=== PATIENT | female | born 1975 | race Two or more races ===

== ENCOUNTER 2020-01-10 09:35 | Inpatient (IN) | payer SELFPAY ==
[~2020-01-10] VITALS: Ht 162.6 cm; Wt 84.3 kg
[2020-01-10] MEDS ORDERED: SODIUM CHLORIDE 0.9% 1,000 ML IV ONE (10:05)
[2020-01-10] MEDS ORDERED: ONDANSETRON HCL 4 MG/2 ML VIAL IV ONE (10:15)
[2020-01-10 10:26] LABS: Basophils # (auto) 0 10 ^3/uL (0-0.2); Eosinophils # (auto) 0 10 ^3/uL (0-0.8); Hematocrit 31.4 % (36.0-46.0); Lymphocytes # (auto) 1.2 10 ^3/uL (0.4-5.4); Lymphocytes % (auto) 11.4 % (10.0-50.0); Monocytes # (auto) 0.7 10 ^3/uL (0-1.3); Monocytes % (auto) 6.6 % (0.0-12.0); Platelet Count (auto) 681 10^3/uL (140-450)
[2020-01-10 10:28] LABS: Basophils % (auto) 0.5 % (0.0-2.0); Eosinophils % (auto) 0.4 % (0.0-7.0); Hemoglobin 9.9 g/dL (12.2-16.2); Mean Corpuscular Hemoglobin 24.5 pg (28.0-32.0); Mean Corpuscular Hgb Conc. 31.6 g/dL (32.0-36.0); Mean Corpuscular Volume 77.4 fL (80.0-100.0); Neutrophils # (auto) 8.3 10 ^3/uL (1.6-8.6); Neutrophils % (auto) 81.1 % (37.0-80.0); Red Blood Cells 4.06 10^6/uL (4.0-5.20); Red Cell Distribution Width 17.8 % (11.8-14.3); White Blood Cell 10.3 10^3/uL (4.4-10.8)
[2020-01-10 10:41] LABS: Albumin 3.8 g/dL (3.4-5.0); Calcium 9.1 mg/dL (8.5-10.1); Potassium 3.6 mmol/L (3.5-5.1)
[2020-01-10 10:44] LABS: Urine Bacteria NONE SEEN /hpf (None Seen); Urine Blood Negative /uL (Negative); Urine Mucus MODERATE (None Seen); Urine Specific Gravity 1.028 (1.001-1.035); Urine WBC 6 /hpf (0 - 5)
[2020-01-10 10:46] LABS: BUN/Creatinine Ratio 12.8; Bilirubin, Total 0.7 mg/dL (0.2-1.0); Total Protein 7.6 g/dL (6.4-8.2)
[2020-01-10 11:31] LABS: INR 1.05 (0.9-1.15); Partial Thromboplastin Time 27.4 sec (23.0-31.2)
[2020-01-10] MEDS ORDERED: cefTRIAXone 1GM/50ML D5W 50 ML IV ONE (15:15)
[2020-01-10] MEDS ORDERED: MORPHINE SULF INJ 2 MG/ML SYRINGE 1ML IV PRN ×2 (16:00)
[2020-01-10] MEDS ORDERED: ACETAMINOPHEN 500 MG TAB PO PRN (16:00)
[2020-01-10] MEDS ORDERED: NITROGLYCERIN 0.4 MG SL TAB SL PRN (16:00)
[2020-01-10] MEDS ORDERED: LORazepam 0.5 MG TAB PO PRN (16:00)
[2020-01-10] MEDS ORDERED: cefTRIAXone SOD 1,000 MG VL ONE (16:38)
[2020-01-10] MEDS: PANTOPRAZOLE 40 MG TAB PO SCH ×2 (16:42→21:43)
[2020-01-10] MEDS: SODIUM CHLORIDE 0.9% 1,000 ML IV SCH (16:43)
[2020-01-10] MEDS: SUCRALFATE 1 GM/10 ML ORAL SUSP PO SCH ×2 (17:34→21:43)
[2020-01-10 21:43] VITALS: BP 108/71
--- NOTE | 2020-01-10 21:43 | NUR ---
MS admit from [facility] admitted to tele/MS after SBAR received. Patient oriented to GEORGE HINSON, RN primary RN, unit, room, bed, and unit policies regarding patient care and visiting hours. Patient weighed by bedscale and encouraged to call if they need something. All questions and concerns addressed, patient verbalized understanding.
[2020-01-10] MEDS: CIPROFLOXACIN HCL 500 MG TAB PO SCH (21:44)
[2020-01-10] MEDS ORDERED: PNEUMOCOCCAL VACC POLYS 25 MCG/0.5 ML VIAL IM ONE (22:45)
--- NOTE | 2020-01-11 00:25 | NUR ---
Nausea Patient c/o nausea. Paged hospitalist Je, ordered Zofran 4mg IV q6hr PRN for nausea. Repeated order to verified.
[2020-01-11] MEDS: ONDANSETRON HCL 4 MG/2 ML VIAL IV PRN ×2 (00:27→12:36)
[2020-01-11] MEDS ORDERED: ONDANSETRON HCL 4 MG/2 ML VIAL ONE (00:27)
[2020-01-11 05:00] VITALS: BP 96/57
[2020-01-11] MEDS: SODIUM CHLORIDE 0.9% 1,000 ML IV SCH ×2 (05:19→18:53)
[2020-01-11 05:31] LABS: Basophils # (auto) 0 10 ^3/uL (0-0.2); Eosinophils % (auto) 0.6 % (0.0-7.0); Mean Corpuscular Volume 77.2 fL (80.0-100.0); White Blood Cell 8.3 10^3/uL (4.4-10.8)
[2020-01-11 05:32] LABS: Basophils % (auto) 0.2 % (0.0-2.0); Eosinophils # (auto) 0 10 ^3/uL (0-0.8); Hematocrit 25.4 % (36.0-46.0); Lymphocytes % (auto) 12.1 % (10.0-50.0); Mean Corpuscular Hemoglobin 24.5 pg (28.0-32.0); Mean Corpuscular Hgb Conc. 31.7 g/dL (32.0-36.0); Monocytes # (auto) 0.6 10 ^3/uL (0-1.3); Monocytes % (auto) 7.6 % (0.0-12.0); Neutrophils # (auto) 6.6 10 ^3/uL (1.6-8.6); Neutrophils % (auto) 79.5 % (37.0-80.0); Platelet Count (auto) 524 10^3/uL (140-450); Red Blood Cells 3.29 10^6/uL (4.0-5.20); Red Cell Distribution Width 17.6 % (11.8-14.3)
[2020-01-11 05:49] LABS: Potassium 3.9 mmol/L (3.5-5.1)
[2020-01-11 05:58] LABS: BUN/Creatinine Ratio 19.2; Bilirubin, Total 0.5 mg/dL (0.2-1.0); Calcium 7.8 mg/dL (8.5-10.1); Total Protein 6.2 g/dL (6.4-8.2)
[2020-01-11] MEDS: SUCRALFATE 1 GM/10 ML ORAL SUSP PO SCH ×4 (06:20→21:10)
--- NOTE | 2020-01-11 08:05 | NUR ---
Opening Shift Note Assumed care of patient, patient asleep, respirations relaxed and even. No S/S of distress/SOB or pain. I will continue to monitor for changes Q1hr and PRN.
[2020-01-11 08:19] VITALS: BP 96/55
[2020-01-11] MEDS ORDERED: diphenhdrAMINE HCL 50 MG/1 ML VL ONE (09:12)
[2020-01-11] MEDS ORDERED: LIDOCAINE VISCOUS 2% 15ML UD ONE (09:12)
[2020-01-11] MEDS ORDERED: SODIUM CHLORIDE LOCK 10 ML ONE (09:12)
--- NOTE | 2020-01-11 10:47 | NUR ---
GI LAB PATIENT NPO ALL CONSENTS SIGNED; CURRENTLY A COVID RULE OUT; ASYMTOMATIC, ROOM AIR 99%. PER WOOD MILLER JOSLYN PATIENT CAN BE TAKEN TO PROCEDURE IN CURRENT BED AND TO FOLLOW PROTOCOL AND CLEANING PROCEDURES PRIOR TO LEAVING THE ANTE ROOM. THIS RN SPOKE TO MICAH DEL REAL IN THE OR , PER CHARGE IN OR RONDA, THE PATIENT CAN COME TO THE OR IN CURRENT BED AND TO BRING THE HARD CHART.
--- NOTE | 2020-01-11 11:15 | NUR ---
TAKEN TO GI LAB. TRANSPORTED VIA HOSPITAL BED , PATIENT WEARING MASK APPROPRIATELY; TOLERATED WELL.ALL PROTOCOLS FOLLOWED.
[2020-01-11] MEDS: MIDAZOLAM HCL 5 MG/ML-1ML VIAL ONE ×3 (11:20→11:27)
[2020-01-11] MEDS: fentaNYL CITRATE 100 MCG/2 ML VL ONE ×3 (11:20→11:27)
--- NOTE | 2020-01-11 12:04 | NUR ---
CENTRAL EVS PAGED AND BODY FITTER TO PLASTER CASTER PATIENT FROM OR RECOVERY.
--- NOTE | 2020-01-11 12:22 | NUR ---
RETURNED FROM OR. PATIENT DENIED PAIN OR NAUSEA. TOLERATED PROCEDURE WELL. CARAFATE GIVEN ORDER AC/HS. WILL CONTIUE TO MONITOR.
[2020-01-11 13:15] VITALS: BP 106/64
--- NOTE | 2020-01-11 13:30 | NUR ---
TOLERATE CLEAR LIQUIDS WELL, NO N/V. Addendum: 01/11/20 at 1734 by TETO CORTES RN ADVANCED DIET TO FULL LIQUID.
--- NOTE | 2020-01-11 15:18 | NUR ---
Nutrition Consult/assessment Note please see attached link for complete assessment Est Energy needs ABW 68 [id number] kcals (23-25 kcal/kgABW), Est Protein needs: 68-74 gms/day (1.0-1.1 gm/kgABW). Will continue to monitor and reassess prn. Addendum: 01/11/20 at [address] Amended: Links added.
[2020-01-11 16:30] LABS: % Iron Saturation 7.7 % (15-50)
[2020-01-11 16:44] VITALS: BP 100/56
[2020-01-11] MEDS: PANTOPRAZOLE 40 MG TAB PO SCH ×2 (16:57→21:11)
[2020-01-11] MEDS: CIPROFLOXACIN HCL 500 MG TAB PO SCH ×2 (16:57→21:11)
--- NOTE | 2020-01-11 17:34 | NUR ---
DIET ADVANCED TO FULL LIQUID DIET . WILL CONTINUE TO MONITOR.
--- NOTE | 2020-01-11 19:50 | NUR ---
Opening Shift Note Assumed care of patient, awake and alert. No S/S of distress/SOB or pain. Instructed on POC and to call for assist PRN, will continue to monitor for changes Q1hr and PRN.
[2020-01-11 20:00] VITALS: BP 102/62
[2020-01-11 22:00] VITALS: BP 127/78
--- NOTE | 2020-01-11 22:20 | NUR ---
Transferred Report/SBAR given to SANDY Jamison. Patient wheelchair down to 298A. Patient tolerated well.
[2020-01-12 05:00] VITALS: BP 115/72
[2020-01-12] MEDS: SUCRALFATE 1 GM/10 ML ORAL SUSP PO SCH ×3 (06:16→17:00)
[2020-01-12 06:21] LABS: Basophils # (auto) 0 10 ^3/uL (0-0.2); Basophils % (auto) 0.1 % (0.0-2.0); Eosinophils # (auto) 0 10 ^3/uL (0-0.8); Hemoglobin 8.6 g/dL (12.2-16.2); Lymphocytes # (auto) 0.5 10 ^3/uL (0.4-5.4); Monocytes # (auto) 0.5 10 ^3/uL (0-1.3); Nucleated Red Blood Cells % 0.1 %
[2020-01-12 06:23] LABS: Eosinophils % (auto) 0.1 % (0.0-7.0); Hematocrit 25.2 % (36.0-46.0); Lymphocytes % (auto) 7.5 % (10.0-50.0); Mean Corpuscular Hemoglobin 35.5 pg (28.0-32.0); Mean Corpuscular Hgb Conc. 34.2 g/dL (32.0-36.0); Mean Corpuscular Volume 103.7 fL (80.0-100.0); Monocytes % (auto) 7.2 % (0.0-12.0); Neutrophils # (auto) 5.4 10 ^3/uL (1.6-8.6); Neutrophils % (auto) 85.1 % (37.0-80.0); Platelet Count (auto) 125 10^3/uL (140-450); Red Blood Cells 2.42 10^6/uL (4.0-5.20); Red Cell Distribution Width 18.3 % (11.8-14.3); White Blood Cell 6.4 10^3/uL (4.4-10.8)
[2020-01-12 07:08] LABS: Cholesterol 208 mg/dL (< 200); HDL Cholesterol 36 mg/dL (40-59); LDL Cholesterol 140 mg/dL (< 100); Triglycerides 205 mg/dL (< 150)
--- NOTE | 2020-01-12 07:44 | NUR ---
closing shift notes pt have no s/s of distress or pain at this time endorse care to day shift nurse
[2020-01-12 08:00] VITALS: BP 125/79
[2020-01-12 08:43] VITALS: BP 125/79
[2020-01-12] MEDS: CIPROFLOXACIN HCL 500 MG TAB PO SCH (09:58)
[2020-01-12] MEDS: PANTOPRAZOLE 40 MG TAB PO SCH (09:58)
[2020-01-12 13:00] VITALS: BP 107/60
[2020-01-12] MEDS: SODIUM CHLORIDE 0.9% 1,000 ML IV SCH (13:02)
[2020-01-12] MEDS ORDERED: PANT40TA2 PO (14:35)
[2020-01-12] MEDS ORDERED: SUCR1TAB22 PO (14:35)
[2020-01-12] MEDS ORDERED: FER325T PO (14:35)
--- NOTE | 2020-01-12 16:36 | NUR ---
assessment Patient is a 44 year old female who is alert and oriented. Patients cognitive abilities are intact. Prior to admission patient lived home with family and functioned independently. Patient informed me she is able to care for her own ADLs. Per patient she will return home to her prior living arrangements post discharge and family will transport her home. Patient has no insurance. Patient has been assessed by Jose Roblero of [facility]. Patient is over income. I have provided patient with resources for [facility], Dr. Rubin, and [facility] urgent care for follow up visits. I have provided patient with a prescription card from community assistance program. Patient has no post discharge needs identified. I informed patient she has a right to speak to a dialysis social worker regarding all care. I informed patient she has a right to participate in any and all discharge planning. Patient does not have a POA and advanced directive. I have offered patient information on POA and advanced directives. I informed the patient the advantages and benefits of having an Advanced Directive. Patient verbalized understanding and agreed to discharge plan. Addendum: 01/12/20 at 1638 by Maggi JACQUES Amended: Links added.
[2020-01-12 16:42] VITALS: BP 107/60
[2020-01-12 16:43] VITALS: BP 107/65
--- NOTE | 2020-01-12 18:41 | NUR ---
Discharge instructions given as ordered. Encourage to follow up with [facility] on 01/24/20 @ 1.30pm as instructed. All questions and concerns addressed. Patient verbalized understanding. Medication reconciliation form completed and copy given to patient. IV removed with catheter intact, pressure dressing applied. Patient taken to vehicle via wheelchair with all personal belongings, accompanied by staff and family member. No distress noted at time of departure.
== END 2020-01-12 18:45 | disposition home or self-care (01) | DRG 384 ==
LOC: ER 09:35 → OVERFLOW 09:36 → EAST 20:30 → WEST WING 01-11 22:40
PROVIDERS: ATTEND Internal Medicine
PROC: 0DB68ZX Excision of Stomach, Via Natural or Artificial Opening Endoscopic, Diagnostic (ICD-10-PCS; principal; 2020-01-11 11:16)
DX: K25.9 Gastric ulcer, unspecified as acute or chronic, without hemorrhage or perforation (principal); K52.9 Noninfective gastroenteritis and colitis, unspecified; N83.9 Noninflammatory disorder of ovary, fallopian tube and broad ligament, unspecified; K29.70 Gastritis, unspecified, without bleeding; E86.0 Dehydration; N20.0 Calculus of kidney; N83.202 Unspecified ovarian cyst, left side; D50.9 Iron deficiency anemia, unspecified; E78.5 Hyperlipidemia, unspecified; Z20.828 Contact with and (suspected) exposure to other viral communicable diseases; Z90.49 Acquired absence of other specified parts of digestive tract
CPT/HCPCS: 36415; 43239; 71045; 74176; 76830; 76856; 80053; 80061; 81001; 81025; 82150; 82962; 83540; 83550; 83605; 83690; 84443; 84702; 85025; 85610; 85730; 86850; 86900; 86901; 87040; 87086; 87426; G0378; J0696; J2250; J2405

== ENCOUNTER 2020-03-06 00:16 | Inpatient (IN) | payer OTHER, SELFPAY ==
[~2020-03-06] VITALS: Ht 162.6 cm; Wt 78.0 kg
[2020-03-06] VITALS (10 sets, daily range): BP systolic 99–113; BP diastolic 54–73
[~2020-03-06 00:16] MED LIST: FER325T PO; PANT40TA2 PO; SUCR1TAB22 PO
[2020-03-06 01:25] LABS: Basophils # (auto) 0 10 ^3/uL (0-0.2); Eosinophils # (auto) 0 10 ^3/uL (0-0.8); Lymphocytes # (auto) 1.1 10 ^3/uL (0.4-5.4); Mean Corpuscular Hemoglobin 20.2 pg (28.0-32.0); Red Blood Cells 2.91 10^6/uL (4.0-5.20)
[2020-03-06 01:27] LABS: Basophils % (auto) 0.4 % (0.0-2.0); Eosinophils % (auto) 0.5 % (0.0-7.0); Hematocrit 19.2 % (36.0-46.0); Lymphocytes % (auto) 13.1 % (10.0-50.0); Mean Corpuscular Hgb Conc. 30.6 g/dL (32.0-36.0); Mean Corpuscular Volume 66.2 fL (80.0-100.0); Monocytes # (auto) 0.6 10 ^3/uL (0-1.3); Monocytes % (auto) 6.7 % (0.0-12.0); Neutrophils # (auto) 6.5 10 ^3/uL (1.6-8.6); Neutrophils % (auto) 79.3 % (37.0-80.0); Nucleated Red Blood Cells % 0.1 %; Platelet Count (auto) 747 10^3/uL (140-450); White Blood Cell 8.2 10^3/uL (4.4-10.8)
[2020-03-06 01:30] LABS: Hemoglobin 5.9 g/dL (12.2-16.2)
[2020-03-06 01:44] LABS: Albumin 2.9 g/dL (3.4-5.0); Anion Gap 8 (5-15); Blood Urea Nitrogen 11 mg/dL (7-18); Carbon Dioxide 25 mmol/L (21-32); Chloride 105 mmol/L (98-107); Glucose 90 mg/dL (74-106); Sodium 138 mmol/L (136-145)
[2020-03-06 01:46] LABS: Alanine Aminotransferase 37 U/L (13-56); Aspartate Aminotransferase 29 U/L (15-37); BUN/Creatinine Ratio 14.9; GFR African American 110 mL/min; GFR Non-African American 91 mL/min
[2020-03-06 01:51] LABS: Alkaline Phosphatase 90 U/L (45-117); Bilirubin, Total 0.6 mg/dL (0.2-1.0); Total Protein 6.9 g/dL (6.4-8.2)
[2020-03-06 08:41] LABS: Hemoglobin 6.7 g/dL (12.2-16.2)
[2020-03-06] MEDS ORDERED: SODIUM CHLORIDE 0.9% 1,000 ML IV ONE ×2 (09:00)
[2020-03-06] MEDS ORDERED: ONDANSETRON HCL 4 MG/2 ML VIAL IV ONE (09:00)
[2020-03-06] MEDS ORDERED: NITROGLYCERIN 0.4 MG SL TAB SL PRN (10:00)
[2020-03-06] MEDS ORDERED: MORPHINE SULF INJ 2 MG/ML SYRINGE 1ML IV PRN ×2 (10:00)
[2020-03-06] MEDS ORDERED: ONDANSETRON HCL 4 MG/2 ML VIAL IV PRN (10:00)
[2020-03-06] MEDS ORDERED: ACETAMINOPHEN 500 MG TAB PO PRN (10:00)
[2020-03-06] MEDS: PANTOPRAZOLE 40 MG/10 ML VIAL INJ IV SCH ×2 (10:10→21:33)
[2020-03-06] MEDS ORDERED: FAMO-12 PO (11:10)
[2020-03-06] MEDS ORDERED: FOLI1TAB6 PO (11:10)
[2020-03-06] MEDS ORDERED: CYAN1TAB11 PO (11:10)
[2020-03-06] MEDS ORDERED: FER325T PO (11:10)
[2020-03-06] MEDS: SUCRALFATE 1 GM/10 ML ORAL SUSP PO SCH ×2 (12:05→17:24)
[2020-03-06 14:09] LABS: Folate (Folic Acid) 14.73 ng/mL (5.38-24)
--- NOTE | 2020-03-06 17:43 | NUR ---
MS admit from [facility] admitted to tele/MS after SBAR received. Patient oriented to SHERINE CALLEJAS, RN primary RN, TELE unit, room 270, bed A, and unit policies regarding patient care and visiting hours. Patient weighed by bedscale and encouraged to call if they need something. All questions and concerns addressed, patient verbalized understanding.
[2020-03-06] MEDS ORDERED: INFLUENZA QUAD 2020-2021 0.5 ML SYRG IM ONE (18:15)
--- NOTE | 2020-03-06 18:18 | NUR ---
CONSENTS SIGNED AND PLACED IN THE HARD CHART.
--- NOTE | 2020-03-06 18:41 | NUR ---
CARE ENDORSED TO THE NOC RN.
--- NOTE | 2020-03-06 19:15 | NUR ---
Opening Shift Note Assumed care of patient, awake and alert x4. No S/S of distress/SOB or pain. Instructed on POC , NPO after midnight for EGD in AM and to call for assist PRN, Patient verbalized understanding. will continue to monitor for changes Q1hr and PRN.
[2020-03-06 20:10] LABS: INR 1.06 (0.9-1.15); Partial Thromboplastin Time 26.6 sec (23.0-31.2)
[2020-03-06 21:22] LABS: Hematocrit 25.9 % (36.0-46.0); Hemoglobin 8.1 g/dL (12.2-16.2)
--- NOTE | 2020-03-07 00:57 | NUR ---
PAULINO COVID SWAB OBTAINED. WILL SEND TO THE LAB.
--- NOTE | 2020-03-07 01:55 | NUR ---
COLLECTED IN HOUSE COVID SWAB AND URINE SAMPLE . SENT TO LAB.
[2020-03-07 02:25] LABS: Urine Bacteria FEW /hpf (None Seen); Urine Blood Negative /uL (Negative); Urine Mucus FEW (None Seen); Urine Specific Gravity 1.016 (1.001-1.035); Urine WBC 8 /hpf (0 - 5)
--- NOTE | 2020-03-07 03:36 | NUR ---
CHG wipes done. Total linen change.
[2020-03-07 05:00] VITALS: BP 103/72
[2020-03-07] MEDS: SUCRALFATE 1 GM/10 ML ORAL SUSP PO SCH ×3 (06:05→17:03)
[2020-03-07 06:06] LABS: Basophils # (auto) 0 10 ^3/uL (0-0.2); Lymphocytes # (auto) 0.8 10 ^3/uL (0.4-5.4); Monocytes # (auto) 0.5 10 ^3/uL (0-1.3); Monocytes % (auto) 7.8 % (0.0-12.0)
[2020-03-07 06:15] LABS: Basophils % (auto) 0.3 % (0.0-2.0); Eosinophils # (auto) 0.1 10 ^3/uL (0-0.8); Eosinophils % (auto) 0.8 % (0.0-7.0); Hematocrit 24.7 % (36.0-46.0); Hemoglobin 7.6 g/dL (12.2-16.2); Lymphocytes % (auto) 12.5 % (10.0-50.0); Mean Corpuscular Hemoglobin 22.3 pg (28.0-32.0); Mean Corpuscular Hgb Conc. 30.8 g/dL (32.0-36.0); Mean Corpuscular Volume 72.2 fL (80.0-100.0); Neutrophils # (auto) 5.1 10 ^3/uL (1.6-8.6); Neutrophils % (auto) 78.6 % (37.0-80.0); Platelet Count (auto) 546 10^3/uL (140-450); Red Blood Cells 3.42 10^6/uL (4.0-5.20); White Blood Cell 6.5 10^3/uL (4.4-10.8)
[2020-03-07 06:24] LABS: Potassium 3.9 mmol/L (3.5-5.1)
[2020-03-07 06:30] LABS: BUN/Creatinine Ratio 15.5; Calcium 7.9 mg/dL (8.5-10.1)
[2020-03-07 06:41] LABS: Red Cell Distribution Width 23.4 % (11.8-14.3)
--- NOTE | 2020-03-07 06:50 | NUR ---
Spoke with Dr. Maldonado on the phone. She said patient's procedure will be at 8:30 am. Patient is NPO, had CHG wipes done.
--- NOTE | 2020-03-07 07:05 | NUR ---
Closing shift event Patient resting in bed. No sob, no chest pain, no acute distress seen. Bed in low locked position, call light within reach, non skid socks on.
--- NOTE | 2020-03-07 08:00 | NUR ---
Opening Shift Note Assumed care of patient, awake, alert and oriented X4. No S/S of distress/SOB or pain. Tele# 49, sinus rhythm @ 72 bpm. IV to left antecubital, 20 gauge, patent and saline locked. Instructed on POC and to call for assist PRN, verbalized understanding. Bed locked, in lowest position, call light within reach, will continue to monitor for changes Q1hr and PRN.
[2020-03-07] MEDS ORDERED: LIDOCAINE VISCOUS 2% 15ML UD ONE (08:19)
[2020-03-07] MEDS ORDERED: SODIUM CHLORIDE LOCK 10 ML ONE (08:19)
[2020-03-07 08:47] VITALS: BP 107/58
[2020-03-07] MEDS: MIDAZOLAM HCL 5 MG/ML-1ML VIAL ONE ×2 (08:52→08:55)
[2020-03-07] MEDS: fentaNYL CITRATE 100 MCG/2 ML VL ONE ×3 (08:52→08:58)
[2020-03-07] MEDS: diphenhdrAMINE HCL 50 MG/1 ML VL ONE ×2 (08:52→08:55)
--- NOTE | 2020-03-07 09:05 | NUR ---
OR Patient taken to Pre-Op for EGD, no distress noted upon departure.
--- NOTE | 2020-03-07 10:15 | NUR ---
EGD Patient returned from EGD via bed, no distress noted upon return.
[2020-03-07] MEDS: PANTOPRAZOLE 40 MG/10 ML VIAL INJ IV SCH ×2 (10:44→22:00)
--- NOTE | 2020-03-07 11:10 | NUR ---
ROUNDS Dr Milan at bedside for rounds, no new orders a t this time. Patient updated on plan of care, verbalized understanding.
[2020-03-07 11:50] LABS: % Iron Saturation 6.8 % (15-50)
[2020-03-07 13:00] VITALS: BP 90/47
[2020-03-07] MEDS ORDERED: SODIUM FERR GLUC 62.5MG/5ML 125 MG in SODIUM CHL 0.9% 100 ML IV ONE (13:15)
[2020-03-07] MEDS: HYDROcodone-ACET 5/325MG TAB PO PRN ×2 (13:40→22:45)
--- NOTE | 2020-03-07 13:46 | NUR ---
HEMATOLOGY Dr Cisneros at bedside for Oncology consult, new orders received and followed through. Patient updated on plan of care, verbalized understanding.
[2020-03-07 14:08] LABS: Hemoglobin 7.7 g/dL (12.2-16.2)
--- NOTE | 2020-03-07 15:00 | NUR ---
assessment Patient is a 44 year old female who is alert and oriented. Patients cognitive abilities are intact. Prior to admission patient lived home with family and functioned independently. Patient informed me she is able to care for her own ADLs. Per patient she will return home to her prior living arrangements post discharge and family will transport her home. Patient has no insurance on the census. Patient provided me with a Isaac ID #[id number]. Sandra in admitting has updated insurance in the system. Patient has no post discharge needs identified at this time. I will continue to monitor and follow up as appropriate for any post discharge needs. I informed patient she has a right to speak to a social services counselor regarding all care. I informed patient she has a right to participate in any and all discharge planning. Patient does not have a POA and advanced directive. I have offered patient information on POA and advanced directives. I informed the patient the advantages and benefits of having an Advanced Directive. Patient verbalized understanding and agreed to discharge plan. Addendum: 03/07/20 at 1504 by Maggi JACQUES Amended: Links added.
[2020-03-07 16:45] VITALS: BP 106/66
--- NOTE | 2020-03-07 19:16 | NUR ---
Care endorsed to SANDY Azevedo, night nurse.
[2020-03-07 22:15] VITALS: BP 99/62
[2020-03-08 05:10] VITALS: BP 92/52
[2020-03-08 06:26] LABS: Basophils # (auto) 0 10 ^3/uL (0-0.2); Eosinophils # (auto) 0.1 10 ^3/uL (0-0.8); Eosinophils % (auto) 0.9 % (0.0-7.0); Hematocrit 25.6 % (36.0-46.0); Mean Corpuscular Hgb Conc. 31.2 g/dL (32.0-36.0); Nucleated Red Blood Cells % 0.1 %
[2020-03-08 06:27] LABS: Basophils % (auto) 0.2 % (0.0-2.0); Lymphocytes # (auto) 0.8 10 ^3/uL (0.4-5.4); Lymphocytes % (auto) 14.6 % (10.0-50.0); Mean Corpuscular Hemoglobin 22.5 pg (28.0-32.0); Mean Corpuscular Volume 72.1 fL (80.0-100.0); Monocytes # (auto) 0.5 10 ^3/uL (0-1.3); Monocytes % (auto) 8.1 % (0.0-12.0); Neutrophils # (auto) 4.3 10 ^3/uL (1.6-8.6); Neutrophils % (auto) 76.2 % (37.0-80.0); Platelet Count (auto) 552 10^3/uL (140-450); Red Blood Cells 3.55 10^6/uL (4.0-5.20); White Blood Cell 5.6 10^3/uL (4.4-10.8)
[2020-03-08] MEDS: SUCRALFATE 1 GM/10 ML ORAL SUSP PO SCH ×2 (06:34→12:28)
[2020-03-08 06:38] LABS: Red Cell Distribution Width 24.4 % (11.8-14.3)
[2020-03-08 06:54] LABS: BUN/Creatinine Ratio 10.3; Calcium 8.3 mg/dL (8.5-10.1); Potassium 3.8 mmol/L (3.5-5.1)
[2020-03-08 09:00] VITALS: BP 103/69
[2020-03-08] MEDS: PANTOPRAZOLE 40 MG/10 ML VIAL INJ IV SCH (10:11)
[2020-03-08] MEDS ORDERED: PANT40TA2 PO (11:51)
[2020-03-08] MEDS ORDERED: FER325T PO (11:51)
[2020-03-08] MEDS ORDERED: DOCU-94 PO (11:51)
[2020-03-08] MEDS ORDERED: SUCR1TAB22 PO (11:51)
[2020-03-08] MEDS ORDERED: SODIUM FERR GLUC 62.5MG/5ML 125 MG in SODIUM CHL 0.9% 100 ML IV SCH (12:00)
[2020-03-08 13:00] VITALS: BP 101/52
--- NOTE | 2020-03-08 13:00 | NUR ---
Dr. Milan at bedside, discussed the plan of care and follow up appointments with PCP, Mayela Medina of GI and Tyson Cordero of oncology as out patient. Patient verbalized understanding.
[2020-03-08 15:46] VITALS: BP 101/52
[2020-03-08] MEDS ORDERED: INFLUENZA QUAD 2020-2021 0.5 ML SYRG IM ONE (16:00)
[2020-03-08 17:00] VITALS: BP 103/65
--- NOTE | 2020-03-08 17:40 | NUR ---
Discharge instructions given as ordered. Encourage to follow up with PMD as instructed. Follow up with Mayela Medina of GI set up for 03/23/2020 at 9:15am, follow up with Dr. Cisneros of oncology needs authorization from PCP prior to appointment, patient verbalized understanding and will get authorization from PCP. All questions and concerns addressed. Patient verbalized understanding. Medication reconciliation form completed and copy given to patient. Influenza vaccine given. IV removed with catheter intact, pressure dressing applied. Telemetry unit returned to ICU. Patient taken to vehicle via wheelchair with all personal belongings, accompanied by staff and family member. No distress noted at time of departure.
== END 2020-03-08 17:40 | disposition home or self-care (01) | DRG 374 ==
LOC: ER 00:17 → TELE 00:18 → TELE-WESTW 17:50
PROVIDERS: ADMIT Nurse Practitioner Acute Care; ATTEND Internal Medicine
PROC: 30233N1 Transfusion of Nonautologous Red Blood Cells into Peripheral Vein, Percutaneous Approach (ICD-10-PCS; 2020-03-06)
PROC: 0DB88ZX Excision of Small Intestine, Via Natural or Artificial Opening Endoscopic, Diagnostic (ICD-10-PCS; 2020-03-07)
PROC: 0DB68ZX Excision of Stomach, Via Natural or Artificial Opening Endoscopic, Diagnostic (ICD-10-PCS; principal; 2020-03-07 08:50)
DX: C16.9 Malignant neoplasm of stomach, unspecified (principal); K25.4 Chronic or unspecified gastric ulcer with hemorrhage; K29.51 Unspecified chronic gastritis with bleeding; E44.0 Moderate protein-calorie malnutrition; E78.5 Hyperlipidemia, unspecified; Z20.828 Contact with and (suspected) exposure to other viral communicable diseases; R07.89 Other chest pain; D50.9 Iron deficiency anemia, unspecified; Z68.29 Body mass index [BMI] 29.0-29.9, adult; R59.1 Generalized enlarged lymph nodes
CPT/HCPCS: 36415; 43239; 71045; 74176; 80048; 80053; 81001; 82378; 82746; 83540; 83550; 83615; 83735; 84425; 84484; 84702; 85014; 85018; 85025; 85610; 85730; 86301; 86304; 86850; 86900; 86901; 86920; 87426; 93005; C9113; G0378; J2250; J2405

== ENCOUNTER 2020-04-02 09:24 | Inpatient (IN) | payer OTHER ==
[~2020-04-02] VITALS: Ht 162.6 cm; Wt 80.5 kg
[~2020-04-02 09:24] MED LIST changes: +CYAN1TAB11 PO; +DOCU-94 PO; +FAMO-12 PO; +FOLI1TAB6 PO
[2020-04-02] MEDS ORDERED: ONDANSETRON HCL 4 MG/2 ML VIAL IV ONE (10:15)
[2020-04-02] MEDS ORDERED: MORPHINE SULFATE 4 MG/ML SYR/VIAL IV ONE (10:15)
[2020-04-02] MEDS ORDERED: SODIUM CHLORIDE 0.9% 1,000 ML IV ONE ×2 (10:15)
[2020-04-02 10:18] LABS: Albumin 2.4 g/dL (3.4-5.0); BUN/Creatinine Ratio 18.4; Calcium 8.9 mg/dL (8.5-10.1); Potassium 3.5 mmol/L (3.5-5.1)
[2020-04-02 10:22] LABS: Bilirubin, Total 0.7 mg/dL (0.2-1.0); Total Protein 7.4 g/dL (6.4-8.2)
[2020-04-02 10:38] LABS: Basophils # (auto) 0 10 ^3/uL (0-0.2); Eosinophils # (auto) 0 10 ^3/uL (0-0.8); Mean Corpuscular Volume 72.5 fL (80.0-100.0); Monocytes # (auto) 0.6 10 ^3/uL (0-1.3); Nucleated Red Blood Cells % 0.1 %
[2020-04-02 10:43] LABS: Basophils % (auto) 0.3 % (0.0-2.0); Eosinophils % (auto) 0.2 % (0.0-7.0); Lymphocytes # (auto) 0.5 10 ^3/uL (0.4-5.4); Lymphocytes % (auto) 5.8 % (10.0-50.0); Mean Corpuscular Hemoglobin 23.4 pg (28.0-32.0); Mean Corpuscular Hgb Conc. 32.3 g/dL (32.0-36.0); Monocytes % (auto) 6.7 % (0.0-12.0); Neutrophils # (auto) 7.4 10 ^3/uL (1.6-8.6); Platelet Count (auto) 530 10^3/uL (140-450); Red Blood Cells 4.28 10^6/uL (4.0-5.20); White Blood Cell 8.5 10^3/uL (4.4-10.8)
[2020-04-02 10:45] LABS: Red Cell Distribution Width 28.2 % (11.8-14.3)
[2020-04-02] MEDS ORDERED: MORPHINE SULF INJ 2 MG/ML SYRINGE 1ML IV PRN ×3 (13:30→20:15)
[2020-04-02] MEDS ORDERED: NITROGLYCERIN 0.4 MG SL TAB SL PRN ×2 (13:30→20:15)
[2020-04-02 14:41] LABS: % Iron Saturation 9.9 % (15-50)
[2020-04-02] MEDS ORDERED: ACET-6 PO (15:11)
[2020-04-02] MEDS ORDERED: PANT40TA2 PO (15:11)
[2020-04-02] MEDS ORDERED: DICY20TA PO (15:11)
[2020-04-02] MEDS ORDERED: ONDANSETRON HCL 4 MG/2 ML VIAL IV PRN ×2 (15:45→20:15)
[2020-04-02] MEDS: SUCRALFATE 1 GM/10 ML ORAL SUSP PO SCH ×2 (16:46→22:20)
[2020-04-02] MEDS: Ensure Enlive Strawberry 8oz Bottle PO SCH (18:00)
[2020-04-02] MEDS ORDERED: CLINDAMYCIN 600MG IV 50 ML IV ONE (20:15)
[2020-04-02] MEDS ORDERED: ACETAMINOPHEN 325 MG TAB PO PRN (20:15)
[2020-04-02] MEDS ORDERED: LACTULOSE 20Gm/30ML SOLN PO PRN (20:15)
[2020-04-02] MEDS ORDERED: HYDROcodone-ACET 5/325MG TAB PO PRN (20:15)
[2020-04-02] MEDS ORDERED: cefTRIAXone 1GM/50ML D5W 50 ML IV ONE (20:15)
[2020-04-02] MEDS ORDERED: ALUM & MAG HYDROX-SIMETH LIQ(MAALOX) 30 ML PO PRN (20:15)
[2020-04-02] MEDS ORDERED: LORazepam 0.5 MG TAB PO PRN (20:15)
[2020-04-02] MEDS: SODIUM CHLORIDE 0.9% 1,000 ML IV SCH (20:55)
[2020-04-02] MEDS: MORPHINE SULF INJ 2 MG/ML SYRINGE 1ML IV PRN (20:56)
--- NOTE | 2020-04-02 21:10 | NUR ---
Telemetry admit from [facility] admitted to Telemetry unit after SBAR received. Patient oriented to Berna Del Toro, primary RN, unit, room, bed, and unit policies regarding patient care and visiting hours. Patient now on continuous telemetry monitoring, tele box # 66 and telemetry reading on arrival to unit is SR 86. Patient placed on bedside oxygen, weighed by bed scale and encouraged to call if they need something. All questions and concerns addressed, patient verbalized understanding.
--- NOTE | 2020-04-02 21:30 | NUR ---
STOCKINGS DVT PROPHYLAXIS TO BILATERAL LOWER EXT APPLIED.
[2020-04-02 21:49] LABS: Cholesterol 117 mg/dL (< 200); HDL Cholesterol 35 mg/dL (40-59); LDL Cholesterol 73 mg/dL (< 100); Triglycerides 130 mg/dL (< 150)
[2020-04-02] MEDS ORDERED: PNEUMOCOCCAL VACC POLYS 25 MCG/0.5 ML VIAL IM ONE (22:00)
[2020-04-02] MEDS: PANTOPRAZOLE 40 MG TAB PO SCH (22:20)
--- NOTE | 2020-04-02 22:30 | NUR ---
PATIENT AMBULATING TO RESTROOM INDEPENDENTLY; STEADY GAIT NOTED.
[2020-04-03] VITALS (11 sets, daily range): BP systolic 95–130; BP diastolic 68–83
[2020-04-03] MEDS: MORPHINE SULF INJ 2 MG/ML SYRINGE 1ML IV PRN ×3 (01:14→09:55)
--- NOTE | 2020-04-03 04:34 | NUR ---
PAIN PATIENT STATES THAT MORPHINE HELPS WITH HER STOMACH PAIN BUT THAT SHE FEELS A "DIFFERENT PAIN" TO HER LEFT UPPER ABDOMEN THAT IS UNRELIEVED. PATIENT DESCRIBES THIS PAIN IN BANGLADESHI "UN DOLOR CON HUECO" WHICH TRANSLATES TO: A PAIN WITH HOLLOWNESS. PROVIDED HEATED PACKS; PATIENT REPORTS MINIMAL COMFORT.
[2020-04-03] MEDS ORDERED: CLINDAMYCIN 600MG IV 50 ML IV SCH (06:00)
[2020-04-03] MEDS: SUCRALFATE 1 GM/10 ML ORAL SUSP PO SCH ×4 (06:11→22:18)
[2020-04-03 06:16] LABS: Basophils # (auto) 0 10 ^3/uL (0-0.2); Basophils % (auto) 0.4 % (0.0-2.0); Eosinophils # (auto) 0 10 ^3/uL (0-0.8); Eosinophils % (auto) 0.5 % (0.0-7.0); Hemoglobin 8.9 g/dL (12.2-16.2); Lymphocytes # (auto) 0.5 10 ^3/uL (0.4-5.4)
[2020-04-03 06:21] LABS: Hematocrit 28.3 % (36.0-46.0); Lymphocytes % (auto) 7.2 % (10.0-50.0); Mean Corpuscular Hgb Conc. 31.4 g/dL (32.0-36.0); Mean Corpuscular Volume 73.4 fL (80.0-100.0); Monocytes # (auto) 0.6 10 ^3/uL (0-1.3); Monocytes % (auto) 9.6 % (0.0-12.0); Neutrophils # (auto) 5.5 10 ^3/uL (1.6-8.6); Neutrophils % (auto) 82.3 % (37.0-80.0); Platelet Count (auto) 395 10^3/uL (140-450); Red Blood Cells 3.86 10^6/uL (4.0-5.20); White Blood Cell 6.6 10^3/uL (4.4-10.8)
[2020-04-03 06:32] LABS: Red Cell Distribution Width 27.7 % (11.8-14.3)
--- NOTE | 2020-04-03 08:08 | NUR ---
Opening Note Assumed care of patient, she is A & O x4, no s/s of distress. POC discussed. Patient states "the pain medication only works for 2 hours and then I have pain again", will notify MD. Bed is in lowest ,locked position, call light within reach. Will continue to monitor.
[2020-04-03] MEDS: FERROUS SULFATE 300 MG/5 ML ORAL LIQ PO SCH ×3 (08:35→19:05)
[2020-04-03] MEDS: Ensure Enlive Strawberry 8oz Bottle PO SCH ×2 (08:35→18:00)
[2020-04-03] MEDS ORDERED: cefTRIAXone 1GM/50ML D5W 50 ML IV SCH (09:00)
[2020-04-03] MEDS: PANTOPRAZOLE 40 MG TAB PO SCH ×2 (09:55→22:18)
--- NOTE | 2020-04-03 10:24 | NUR ---
Dr. Milan and Dr. Agudelo at bedside. POC discussed. Patient to have a paracentesis. Informed doctors of patient persistent pain in the abdomen. Will medicate per orders.
[2020-04-03] MEDS: SIMETHICONE 40 MG/0.6 ML ORAL DROP PO SCH ×4 (10:30→22:18)
--- NOTE | 2020-04-03 10:59 | NUR ---
ss consult Per consult advanced directive. Patient has been given an advanced directive. Addendum: 04/03/20 at 1100 by Maggi JACQUES Amended: Links added.
[2020-04-03 11:51] LABS: INR 1.06 (0.9-1.15); Partial Thromboplastin Time 24.8 sec (23.0-31.2)
[2020-04-03] MEDS: HYDROmorphone HCL 2 MG/ML VL IV PRN ×3 (12:34→19:48)
--- NOTE | 2020-04-03 12:35 | NUR ---
Nutrition consult/assessment Note please see attached link for complete assessment. Est energy needs BW74 k-1850 kcal (23-25 kcal/kg BW), Est protein needs 74-88 g (1.0-1.2 g/kg BW). Will monitor and reassess prn. Addendum: 04/03/20 at [address] Amended: Links added.
--- NOTE | 2020-04-03 12:50 | NUR ---
Dr. Cisneros at bedside. Mayra DELGADO, able to translate costa rican to finnish for patient for the specifics of the cancer doctor.
[2020-04-03] MEDS: SODIUM CHLORIDE 0.9% 1,000 ML IV SCH (13:03)
--- NOTE | 2020-04-03 13:50 | NUR ---
Patient returned from paracentesis. Patient states "I feel dizzy". Took patient BP 122/93, HR 92, O2 99, RR20, 10/10 pain in the left flank. Patient was medicated prior to procedure. Patient states "I get this pain when I lay flat," per patient she was flat for the procedure. Got patient comfortable in bed, placed hot packs to the area. Will inform MD of pain.
--- NOTE | 2020-04-03 13:57 | NUR ---
PARACENTESIS PATIENT UNDERWENT PARACENTESIS IN .S. DEPT. PER DR CAPPS UNDER LOCAL ANESTHETIC. PROCEDURE TOLERATED WELL. 3850 ML DK QUENTIN LIQUID OBTAINED AND TAKEN TO LAB/PATHOLOGY FOR ORDERED TESTING. BANDAID APPLIED TO RIGHT ABD - NO BLEEDING/HEMATOMA NOTED AT SITE. PATIENT C/O LEFT LOWER BACK PAIN AFTER PROCEDURE BUT STATES THAT SHE HAS BEEN HAVING THIS PAIN. REPORT CALLED TO GENESIS DELGADO.
--- NOTE | 2020-04-03 14:10 | NUR ---
Informed Dr. Milan of patient pain to the left flank s/p paracentesis. Orders received, read back and verified for pain medication. When offered to the patient for pain medication, she wanted to wait until the next dose was due, see if the pain will subside a little.
--- NOTE | 2020-04-03 16:50 | NUR ---
Rounds Patient sleeping comfortable at this time, awakens to name, no s/s of distress. Will continue to monitor.
[2020-04-03 17:40] LABS: Urine Bacteria FEW /hpf (None Seen); Urine Blood Negative /uL (Negative); Urine Mucus FEW (None Seen); Urine Specific Gravity 1.028 (1.001-1.035); Urine WBC 5 /hpf (0 - 5)
[2020-04-03 17:55] LABS: Alcohol, Urine < 3.0 mg/dL (0-10); Amphetamine Screen, Urine NEGATIVE (NEGATIVE); Barbiturate Scree,Urine NEGATIVE (NEGATIVE); Benzodiazephine Screen, Urine NEGATIVE (NEGATIVE); Cannabinoid Screen, Urine POSITIVE (NEGATIVE); Cocaine Screen, Urine NEGATIVE (NEGATIVE); Phencyclidine Screen, Urine NEGATIVE (NEGATIVE)
[2020-04-03 18:03] LABS: Opiate Scree,Urine POSITIVE (NEGATIVE)
--- NOTE | 2020-04-03 19:05 | NUR ---
OPENING NOTE- NOC SHIFT ASSUMED PATIENT CARE. PATIENT IS IN BED, BED IS LOCKED AT LOWEST POSITION, BED RAILS UP X2 AND HEAD OF BED IS UP >45 DEGREES. BEDSIDE TABLE WITHIN REACH, PERSONAL BELONGINGS WITHIN REACH. DISCUSSED POC WITH PATIENT AND INSTRUCTED PATIENT TO CALL PRN; PATIENT VERBALIZED UNDERSTANDING.
--- NOTE | 2020-04-03 23:00 | NUR ---
NUTRITION PATIENT REFUSED DINNER. EDUCATED PATIENT REGARDING NUTRIENTS IN ENSURE AND ENCOURAGED PATIENT TO DRINK IT. PATIENT CONSUMED 75% OF ENSURE. NO NAUSEA OR VOMITING.
[2020-04-04] VITALS (7 sets, daily range): BP systolic 104–115; BP diastolic 65–76
[2020-04-04] MEDS: HYDROmorphone HCL 2 MG/ML VL IV PRN ×7 (00:02→20:22)
[2020-04-04] MEDS: SODIUM CHLORIDE 0.9% 1,000 ML IV SCH ×2 (05:07→20:54)
[2020-04-04] MEDS: SIMETHICONE 40 MG/0.6 ML ORAL DROP PO SCH ×4 (06:48→20:53)
[2020-04-04] MEDS: SUCRALFATE 1 GM/10 ML ORAL SUSP PO SCH ×4 (06:48→20:52)
--- NOTE | 2020-04-04 07:29 | NUR ---
CLOSING NOTE- NOC SHIFT ENDORSED PATIENT CARE TO DAY SHIFT NURSE. PATIENT IS CALM, NO S/SX OF DISTRESS OR SOB.
--- NOTE | 2020-04-04 07:45 | NUR ---
Opening Note Assumed care of patient, she is resting at this time, awakens to name, patient can communicate in Spanish well, Mongolian is her primary language. Patient is comfortable at this time, no pain. Encouraged patient to drink some Ensure, educated her on nutrition. Bed is in lowest, locked position, call light within reach. Will continue to monitor.
[2020-04-04] MEDS: Ensure Enlive Strawberry 8oz Bottle PO SCH ×2 (08:00→18:00)
--- NOTE | 2020-04-04 08:56 | NUR ---
Called Lab to make sure the urine culture is processed.
--- NOTE | 2020-04-04 09:05 | NUR ---
Dr. Cisneros at bedside. Offered Chemotherapy to patient to assist in slowing the cancer, Sirisha (cardiac care unit nurse) at bedside to translate to maori for patient. Patient agreed to chemotherapy and portacath placement. Orders received, read back and verified.
--- NOTE | 2020-04-04 09:10 | NUR ---
Asked Sirisha, manager unit to call surgical consult to Dr. Oro.
[2020-04-04] MEDS: FERROUS SULFATE 300 MG/5 ML ORAL LIQ PO SCH ×3 (09:21→18:20)
[2020-04-04] MEDS: PANTOPRAZOLE 40 MG TAB PO SCH ×2 (09:22→20:54)
[2020-04-04] MEDS: cefTRIAXone 1GM/50ML D5W 50 ML IV SCH (11:36)
[2020-04-05] MEDS: HYDROmorphone HCL 2 MG/ML VL IV PRN ×4 (01:12→22:08)
[2020-04-05 05:17] VITALS: BP 111/68
[2020-04-05] MEDS: SIMETHICONE 40 MG/0.6 ML ORAL DROP PO SCH ×4 (06:00→20:55)
[2020-04-05] MEDS: SUCRALFATE 1 GM/10 ML ORAL SUSP PO SCH ×4 (06:03→20:55)
--- NOTE | 2020-04-05 06:30 | NUR ---
Patient taken to OR in bed
[2020-04-05] MEDS: ceFAZolin 1GM VL ONE ×2 (07:03→10:15)
[2020-04-05] MEDS: LIDOCAINE 1% HCL (LOCAL ANESTH.) INJ 20ML MDV ONE ×2 (07:03→10:15)
[2020-04-05] MEDS: HEPARIN SODIUM (PORCINE) 5000 UNITS/ML 1ML VIAL ONE ×2 (07:03→10:15)
[2020-04-05] MEDS: HEPARIN 1,000 UNITS/ml 1ML VIAL ONE ×2 (07:04→10:15)
[2020-04-05] MEDS ORDERED: ceFAZolin 1GM/50ML 50 ML IV ONE (07:06)
[2020-04-05 07:12] LABS: Anion Gap 6 (5-15); Blood Urea Nitrogen 10 mg/dL (7-18); Calcium 8.5 mg/dL (8.5-10.1); Carbon Dioxide 24 mmol/L (21-32); Chloride 106 mmol/L (98-107); Glucose 99 mg/dL (74-106); Potassium 4.7 mmol/L (3.5-5.1); Sodium 136 mmol/L (136-145)
[2020-04-05 07:14] LABS: BUN/Creatinine Ratio 15.2; GFR African American 125 mL/min; GFR Non-African American 103 mL/min
[2020-04-05] MEDS ORDERED: MIDAZOLAM HCL 1MG/1ML-2 ML VIAL ONE (07:19)
[2020-04-05] MEDS ORDERED: KETAMINE HCL 10 ML ONE (07:19)
[2020-04-05] MEDS ORDERED: fentaNYL CITRATE 100 MCG/2 ML VL ONE (07:19)
[2020-04-05] MEDS ORDERED: ONDANSETRON HCL 4 MG/2 ML VIAL ONE (07:20)
[2020-04-05] MEDS ORDERED: GLYCOPYRROLATE 0.2 MG/ML 1ML VIAL ONE (07:20)
--- NOTE | 2020-04-05 07:35 | NUR ---
pt off unit
--- NOTE | 2020-04-05 07:38 | NUR ---
pt off unit Addendum: 04/05/20 at 1052 by JARED GARCIA RN RN Amended: Links added.
[2020-04-05 08:00] VITALS: BP 105/67
[2020-04-05] MEDS: Ensure Enlive Strawberry 8oz Bottle PO SCH ×2 (08:00→17:28)
[2020-04-05] MEDS: FERROUS SULFATE 300 MG/5 ML ORAL LIQ PO SCH ×3 (08:00→17:28)
--- NOTE | 2020-04-05 08:00 | NUR ---
pt off unit
[2020-04-05] MEDS ORDERED: HYDROmorphone HCL 2 MG/ML VL ONE (09:20)
[2020-04-05] MEDS: MORPHINE SULF 30 mg ER tab PO SCH ×2 (10:00→20:56)
--- NOTE | 2020-04-05 10:00 | NUR ---
pt off unit Addendum: 04/05/20 at 1054 by JARED GARCIA RN RN Amended: Links added.
[2020-04-05] MEDS ORDERED: HYDROmorphone HCL 2 MG/ML VL IV PRN (10:30)
[2020-04-05] MEDS ORDERED: ONDANSETRON HCL 4 MG/2 ML VIAL IV PRN (10:30)
[2020-04-05] MEDS: cefTRIAXone 1GM/50ML D5W 50 ML IV SCH (11:46)
[2020-04-05] MEDS: PANTOPRAZOLE 40 MG TAB PO SCH ×2 (11:46→21:01)
--- NOTE | 2020-04-05 12:58 | NUR ---
Dr. Cisneros at bedside Informed Dr. Cisneros of elevated temperature and elevated heart rate after procedure. discussed POC with pt. Pt verbalized understanding.
[2020-04-05 13:00] VITALS: BP 107/66
--- NOTE | 2020-04-05 13:20 | NUR ---
Dr. Agudelo at bedside Dr. Agudelo Informed pt that can resume full liquid diet as tolerated. Pt verbalized understanding.
[2020-04-05 14:20] LABS: Basophils # (auto) 0 10 ^3/uL (0-0.2); Basophils % (auto) 0.2 % (0.0-2.0); Eosinophils # (auto) 0 10 ^3/uL (0-0.8); Hemoglobin 8.7 g/dL (12.2-16.2); Lymphocytes # (auto) 0.5 10 ^3/uL (0.4-5.4); Monocytes # (auto) 0.8 10 ^3/uL (0-1.3); Neutrophils # (auto) 7.5 10 ^3/uL (1.6-8.6); White Blood Cell 8.8 10^3/uL (4.4-10.8)
[2020-04-05 14:21] LABS: Eosinophils % (auto) 0.1 % (0.0-7.0); Lymphocytes % (auto) 5.6 % (10.0-50.0); Mean Corpuscular Hemoglobin 22.8 pg (28.0-32.0); Mean Corpuscular Hgb Conc. 30.9 g/dL (32.0-36.0); Mean Corpuscular Volume 73.6 fL (80.0-100.0); Monocytes % (auto) 9.1 % (0.0-12.0); Nucleated Red Blood Cells % 0.1 %; Platelet Count (auto) 378 10^3/uL (140-450)
[2020-04-05 14:23] LABS: Red Cell Distribution Width 27.6 % (11.8-14.3)
[2020-04-05] MEDS: SODIUM CHLORIDE 0.9% 1,000 ML IV SCH (15:16)
--- NOTE | 2020-04-05 16:15 | NUR ---
Juan David ROUNDING: PATIENT ROUNDING. INFORMED OF PATIENTS LOW GRADE FEVER AND OF PATIENTS EPISODE OF TACHYCARDIA. INSTRUCTED TO OBTAIN URINE TO SEND FOR LAB. WILL FOLLOW THROUGH.
[2020-04-05 16:50] VITALS: BP 98/51
[2020-04-05 22:00] VITALS: BP 106/73
[2020-04-06] MEDS: HYDROmorphone HCL 2 MG/ML VL IV PRN ×6 (01:10→23:20)
[2020-04-06 05:00] VITALS: BP 114/68
[2020-04-06 05:45] LABS: Urine WBC None Seen /hpf (0 - 5)
[2020-04-06] MEDS: SUCRALFATE 1 GM/10 ML ORAL SUSP PO SCH ×4 (05:48→22:48)
[2020-04-06] MEDS: SIMETHICONE 40 MG/0.6 ML ORAL DROP PO SCH ×4 (05:48→22:48)
[2020-04-06] MEDS: SODIUM CHLORIDE 0.9% 1,000 ML IV SCH (05:54)
[2020-04-06 06:34] LABS: Urine Amorphous Crystal MANY /hpf (None Seen); Urine Bacteria NONE SEEN /hpf (None Seen); Urine Blood Negative /uL (Negative); Urine Mucus FEW (None Seen); Urine Specific Gravity 1.036 (1.001-1.035)
--- NOTE | 2020-04-06 07:15 | NUR ---
ASSUMED CARE OF PATIENT AWAKE ALERT AND ORIENTED. RESPIRATIONS EVEN AND UNLABORED. POC REVIEWED WITH PATENT. PATIENT VERBALIZED UNDERSTANDING. HOB ELEVATED AT LEAST 30 DEGREES, CALL LIGHT IS WITHIN REACH, SIDE RAILS UP X 2, BED LOCKED IN LOWEST POSITION.
[2020-04-06] MEDS: FERROUS SULFATE 300 MG/5 ML ORAL LIQ PO SCH ×3 (08:34→17:38)
[2020-04-06] MEDS: Ensure Enlive Strawberry 8oz Bottle PO SCH ×2 (08:34→17:31)
[2020-04-06 09:00] VITALS: BP 118/77
[2020-04-06] MEDS: cefTRIAXone 1GM/50ML D5W 50 ML IV SCH (09:00)
[2020-04-06] MEDS: LIDOCAINE 2%HCL (LOCAL ANESTH.) INJ 20ML MDV ONE ×2 (09:55→10:35)
[2020-04-06] MEDS: fentaNYL CITRATE 100 MCG/2 ML VL IV ONE ×2 (10:00→10:33)
[2020-04-06] MEDS: MORPHINE SULF 30 mg ER tab PO SCH ×2 (10:00→22:00)
[2020-04-06] MEDS: MIDAZOLAM HCL 1MG/1ML-2 ML VIAL IV ONE ×2 (10:00→10:30)
[2020-04-06] MEDS: PANTOPRAZOLE 40 MG TAB PO SCH ×2 (10:00→22:48)
--- NOTE | 2020-04-06 10:26 | NUR ---
PATIENT TAKEN DOWN FOR PROCEDURE.
--- NOTE | 2020-04-06 11:35 | NUR ---
PLACEMENT OF PLEURX CATHETER PATIENT UNDERWENT PLEURX CATHETER INSERTION TO RIGHT UPPER ABDOMEN PER DR Pamela CAPPS UNDER LOCAL ANESTHETIC AND MODERATE SEDATION. SEE MAR FOR MEDS GIVEN. SEE MODERATE SEDATION RECORD ON CHART. SEE FLOWSHEET FOR VS. 2300 ML STRAW COLORED LIQUID DRAINED FROM ABD. SAO2 DECREASED FROM 96% TO 91% - O2 APPLIED AT PATIENT TOLERATED PROCEDURE WELL. FOAM DRSG APPLIED AND COVERED WITH TEGADERM - PLEURX TUBE SUTURED IN PLACE- NO BLEEDING OR HEMATOMA NOTED AT SITE. PATIENT RETURNED TO ROOM PER BED ON 2L PER NC VIA PORTABLE O2. REPORT GIVEN TO PATIENT'S RN HERLINDA.
--- NOTE | 2020-04-06 11:50 | NUR ---
PATIENT RETURNED TO ROOM. NO DISTRESS NOTED AT THIS TIME. CONTINUE CARE.
[2020-04-06 13:00] VITALS: BP 111/70
[2020-04-06] MEDS ORDERED: FLUCONAZOLE 200MG/100ML 100 ML IV ONE (14:00)
--- NOTE | 2020-04-06 14:40 | NUR ---
Nutrition Followup Note Wt 74.5 kg Pt was off the floor when rounded this am for placement of pleurax catheter per RN. pt is currently on full liq diet with poor PO of < 50% x 4 per RN doc along with ensure enlive 1 carton tid. pt with GI cancer Est energy needs BW74 k-1850 kcal (23-25 kcal/kg BW), Est protein needs 74-88 g (1.0-1.2 g/kg BW). Will monitor and reassess prn Labs: All nutrition related labs wnl for today BM: Pt had 1 BM today per RN note Skin: BS 20 high risk, cellulitis full details in home visit field care manager note PES: Altered nutrition related lab values r.t current medical condition aeb mod hypoalb Increased nutrient needs r/t chronic medical condition aeb pt`s with cancer poOR po Comments: Will continue to monitor PO intake, skin status. F/u high 3-5 days Rec: 1) consider Megace if appetite is poor. 2) consider alternate nutrition support to meet > 75% of needs. 3) continue current plan of care
[2020-04-06 17:57] LABS: Basophils # (auto) 0 10 ^3/uL (0-0.2); Basophils % (auto) 0.1 % (0.0-2.0); Eosinophils # (auto) 0 10 ^3/uL (0-0.8); Hemoglobin 8.4 g/dL (12.2-16.2); Lymphocytes # (auto) 0.3 10 ^3/uL (0.4-5.4); Mean Corpuscular Volume 73.8 fL (80.0-100.0); Monocytes # (auto) 0.8 10 ^3/uL (0-1.3); Neutrophils # (auto) 7.6 10 ^3/uL (1.6-8.6)
[2020-04-06 17:58] LABS: Eosinophils % (auto) 0.2 % (0.0-7.0); Hematocrit 26.5 % (36.0-46.0); Lymphocytes % (auto) 3.3 % (10.0-50.0); Mean Corpuscular Hemoglobin 23.3 pg (28.0-32.0); Mean Corpuscular Hgb Conc. 31.6 g/dL (32.0-36.0); Monocytes % (auto) 8.7 % (0.0-12.0); Neutrophils % (auto) 87.7 % (37.0-80.0); Platelet Count (auto) 349 10^3/uL (140-450); Red Blood Cells 3.59 10^6/uL (4.0-5.20); Red Cell Distribution Width 28.3 % (11.8-14.3); White Blood Cell 8.6 10^3/uL (4.4-10.8)
--- NOTE | 2020-04-06 19:30 | NUR ---
ENDORSED CARE TO NOC SHIFT RN
--- NOTE | 2020-04-06 19:55 | NUR ---
Opening Shift Note Assumed care of patient. Awake, alert and oriented x4. No S/S of distress/SOB or pain. Pleurx dressing to right upper abdomen c/d/i. Port a cath insertion site c/d/i. Instructed on POC and to call for assist PRN. Bed locked, in lowest position, call light within reach, side rails up x2. Will continue to monitor for changes Q1hr and PRN.
[2020-04-06] MEDS: DOCUSATE SOD 100 MG CAP PO PRN (20:13)
[2020-04-07 05:00] VITALS: BP 100/67
[2020-04-07] MEDS: SIMETHICONE 40 MG/0.6 ML ORAL DROP PO SCH ×4 (06:36→22:09)
[2020-04-07] MEDS: SUCRALFATE 1 GM/10 ML ORAL SUSP PO SCH ×4 (06:36→22:08)
[2020-04-07] MEDS: SODIUM CHLORIDE 0.9% 1,000 ML IV SCH ×2 (06:36→16:42)
[2020-04-07] MEDS: HYDROmorphone HCL 2 MG/ML VL IV PRN ×3 (06:53→18:16)
[2020-04-07 07:13] LABS: Hemoglobin 7.9 g/dL (12.2-16.2)
[2020-04-07 07:15] LABS: Magnesium 2.1 mg/dL (1.6-2.6); Potassium 4.4 mmol/L (3.5-5.1)
[2020-04-07 07:17] LABS: Hematocrit 25.2 % (36.0-46.0)
--- NOTE | 2020-04-07 07:25 | NUR ---
ASSUMED CARE OF PATENT RESTING IN BED WITH EYES CLOSED. RESPIRATIONS EVEN AND UNLABORED. BED LOCKED IN LOWEST POSITION, CALL LIGHT WITHIN REACH, HOB ELEVATED AT LEAST 30 DEGREES AND SIDE RAILS UP X 2.
[2020-04-07] MEDS: FERROUS SULFATE 300 MG/5 ML ORAL LIQ PO SCH ×3 (08:56→17:46)
[2020-04-07] MEDS: Ensure Enlive Strawberry 8oz Bottle PO SCH ×2 (08:57→17:46)
[2020-04-07] MEDS: cefTRIAXone 1GM/50ML D5W 50 ML IV SCH (08:57)
[2020-04-07 09:00] VITALS: BP 105/61
[2020-04-07] MEDS: FLUCONAZOLE 100 MG TAB PO SCH (09:19)
[2020-04-07] MEDS: MORPHINE SULF 30 mg ER tab PO SCH ×2 (09:20→22:08)
[2020-04-07] MEDS: PANTOPRAZOLE 40 MG TAB PO SCH ×2 (09:20→22:08)
[2020-04-07 13:00] VITALS: BP 101/64
[2020-04-07 16:07] VITALS: BP 92/62
--- NOTE | 2020-04-07 16:21 | NUR ---
IV insertion IV access obtained, via clean sterile technique by inserting 20 gauge catheter at RIGHT HAND after 2 attempt. IV secured properly. No trauma to site. Patient tolerated well.
[2020-04-07] MEDS ORDERED: IOHEXOL 350 MG/ML 100ML IJ ONE (16:59)
--- NOTE | 2020-04-07 17:05 | NUR ---
PATIENT TAKEN DOWN FOR PROCEDURE.
--- NOTE | 2020-04-07 17:20 | NUR ---
PATIENT RETURNED TO ROOM. NO DISTRESS NOTED AT THIS TIME. CONTINUE CARE.
--- NOTE | 2020-04-07 19:19 | NUR ---
ENDORSED CARE TO NOC SHIFT RN
--- NOTE | 2020-04-07 19:25 | NUR ---
OPENING SHIFT NOTE Assumed care of patient who is A&O x4. Currently on RA with no s/s of distress. Denies pain at this time. Pain management options discussed. PIV in right hand is intact and patent. Currently infusing IVF as ordered. PIV in left wrist is leaking. IV discontinued using clean technique. Catheter tip is fully intact and pressure dressing applied. Patient tolerated well. POC discussed and patient verbalizes understanding. Bed is in low locked position with side rails up x2. Call light is within reach and patient encouraged to call for assistance when needed. Will continue to monitor for changes PRN.
[2020-04-07 20:00] VITALS: BP 105/72
[2020-04-08 05:11] VITALS: BP 99/61
[2020-04-08] MEDS: SUCRALFATE 1 GM/10 ML ORAL SUSP PO SCH ×4 (06:35→22:03)
[2020-04-08] MEDS: SIMETHICONE 40 MG/0.6 ML ORAL DROP PO SCH ×4 (06:36→22:00)
[2020-04-08 06:40] LABS: Hemoglobin 7.7 g/dL (12.2-16.2)
[2020-04-08 06:43] LABS: Hematocrit 24.4 % (36.0-46.0)
[2020-04-08] MEDS: HYDROmorphone HCL 2 MG/ML VL IV PRN ×3 (06:48→22:09)
[2020-04-08 07:19] LABS: Calcium 8.1 mg/dL (8.5-10.1); Potassium 4.2 mmol/L (3.5-5.1)
--- NOTE | 2020-04-08 07:37 | NUR ---
ASSUMED CARE OF PATIENT AWAKE AND ALERT. RESPIRATIONS EVEN AND UNLABORED. UPDATED PATIENT ON PLAN OF CARE AND INSTRUCTED TO CALL FOR ASSIST IF NEEDED. BED LOCKED IN LOWEST POSITION, CALL LIGHT WITHIN REACH, HOB ELEVATED AT LEAST 30 DEGREES AND SIDE RAILS UP X 2. BED ALARM ON AT THIS TIME.
[2020-04-08 08:00] VITALS: BP 97/63
[2020-04-08] MEDS: FERROUS SULFATE 300 MG/5 ML ORAL LIQ PO SCH ×3 (08:23→17:41)
[2020-04-08] MEDS: Ensure Enlive Strawberry 8oz Bottle PO SCH ×2 (08:23→17:41)
[2020-04-08] MEDS: cefTRIAXone 1GM/50ML D5W 50 ML IV SCH (08:24)
[2020-04-08 09:00] VITALS: BP 103/70
--- NOTE | 2020-04-08 09:16 | NUR ---
DR MENA PAGED REGARDING PATIENT'S LATEST HEMOGLOBIN LEVEL. AWAITING CALL BACK. CONTINUE CARE.
[2020-04-08] MEDS: SODIUM CHLORIDE 0.9% 1,000 ML IV SCH ×2 (09:26→14:59)
[2020-04-08] MEDS: FLUCONAZOLE 100 MG TAB PO SCH (09:27)
[2020-04-08] MEDS: PANTOPRAZOLE 40 MG TAB PO SCH ×2 (09:27→22:03)
[2020-04-08] MEDS: MORPHINE SULF 30 mg ER tab PO SCH ×2 (09:27→22:00)
--- NOTE | 2020-04-08 10:33 | NUR ---
SPOKE WITH DR MENA REGARDING PATIENT'S LATEST HEMOGLOBIN LEVEL WELL THAT THE VENOUS DOPPLER STUDY HAD BEEN PERFORMED THIS MORNING. NO NEW ORDERS AT THIS TIME. CONTINUE CARE.
[2020-04-08 13:00] VITALS: BP 102/70
[2020-04-08] MEDS ORDERED: ENOXAPARIN SOD 80 MG/0.8ML SYRINGE SC ONE (14:15)
[2020-04-08 16:53] VITALS: BP 102/67
[2020-04-08] MEDS: DOCUSATE SOD 100 MG CAP PO PRN (17:41)
--- NOTE | 2020-04-08 19:20 | NUR ---
OPENING SHIFT NOTE Assumed care of patient who is alert and oriented and currently on RA with no S/S of distress or SOB noted at this time. Patient denies pain. POC discussed with patient in detail all questions answered, patient verbalized understanding. Call light is within reach and patient is encouraged to call for assistance as needed. Bed is locked, in lowest position, side rails up x2. Will continue to monitor PRN/Q1hr.
--- NOTE | 2020-04-08 19:29 | NUR ---
ENDORSED CARE TO NOC SHIFT RN
[2020-04-08 22:00] VITALS: BP 104/67
[2020-04-09] VITALS (13 sets, daily range): BP systolic 47–105; BP diastolic 23–75
[2020-04-09] MEDS: HYDROmorphone HCL 2 MG/ML VL IV PRN ×6 (01:20→21:16)
[2020-04-09] MEDS: SIMETHICONE 40 MG/0.6 ML ORAL DROP PO SCH ×4 (05:59→22:00)
[2020-04-09] MEDS: SUCRALFATE 1 GM/10 ML ORAL SUSP PO SCH ×4 (06:39→22:12)
[2020-04-09 07:26] LABS: Basophils # (auto) 0 10 ^3/uL (0-0.2); Basophils % (auto) 0.2 % (0.0-2.0); Eosinophils # (auto) 0 10 ^3/uL (0-0.8); Eosinophils % (auto) 0.7 % (0.0-7.0); Lymphocytes # (auto) 0.4 10 ^3/uL (0.4-5.4); Mean Corpuscular Volume 73.7 fL (80.0-100.0); Neutrophils # (auto) 4.1 10 ^3/uL (1.6-8.6); White Blood Cell 5.1 10^3/uL (4.4-10.8)
[2020-04-09 07:28] LABS: Hemoglobin 7.4 g/dL (12.2-16.2); Lymphocytes % (auto) 7.5 % (10.0-50.0); Mean Corpuscular Hemoglobin 22.7 pg (28.0-32.0); Mean Corpuscular Hgb Conc. 30.8 g/dL (32.0-36.0); Monocytes # (auto) 0.5 10 ^3/uL (0-1.3); Monocytes % (auto) 10.1 % (0.0-12.0); Neutrophils % (auto) 81.5 % (37.0-80.0); Platelet Count (auto) 332 10^3/uL (140-450); Red Blood Cells 3.26 10^6/uL (4.0-5.20)
--- NOTE | 2020-04-09 07:45 | NUR ---
RECEIVED PATIENT ALERT AND ORIENTED X4, NOT IN DISTRESS, CLEAR LS IN BILATERAL LUNG LOBES, RR=18, DENIED SOB AND CHEST PAIN, DEEP BREATHING AND COUGHING WAS ENCOURAGED, DEMONSTRATED AND VERBALIZED UNDERSTANDING, SR R=98 ON TELE MONITOR, LT. CHEST PORT A CATH INCISION SITE INTACT AND COVERED WITH DRY AND INTACT DRESSING, RT. MID ABDOMINAL CATH SITE COVERED WITH DRY AND INTACT DRESSING, ABDOMEN SOFT AND ROUND, ACTIVE BS, LAST BM=04/07/20 REPORTED, TOLERATING CLEAR LIQUID DIET WELL, SKIN INTACT, WARM TO TOUCH, BILATERAL RADIAL AND PEDAL PULSES PALPABLE, AMBULATES TO BR INDEPENDENTLY, TOLERATING WELL, RESTING ON BED, HEAD OF BED ELEVATED, BED ON LOW POSITION, CALL LIGHT ON REACH, WILL CONTINUE MONITORING.
--- NOTE | 2020-04-09 07:50 | NUR ---
CARE ENDORSED TO DAY SHIFT RN
[2020-04-09] MEDS: cefTRIAXone 1GM/50ML D5W 50 ML IV SCH (08:21)
[2020-04-09] MEDS: FERROUS SULFATE 300 MG/5 ML ORAL LIQ PO SCH ×3 (08:21→17:46)
[2020-04-09] MEDS: Ensure Enlive Strawberry 8oz Bottle PO SCH ×2 (08:21→18:00)
[2020-04-09] MEDS: SODIUM CHLORIDE 0.9% 1,000 ML IV SCH (09:50)
[2020-04-09] MEDS: FLUCONAZOLE 100 MG TAB PO SCH (09:50)
[2020-04-09] MEDS: PANTOPRAZOLE 40 MG TAB PO SCH ×2 (09:50→22:13)
[2020-04-09] MEDS: MORPHINE SULF 30 mg ER tab PO SCH ×2 (10:00→22:32)
--- NOTE | 2020-04-09 10:05 | NUR ---
Pending cath lab tech as ordered, code status changed to DNR as requested by the patient and ordered by Dr. Macdonald, will continue monitoring.
--- NOTE | 2020-04-09 10:20 | NUR ---
CONSENT AND CHECK LIST ON CHART, NOT IN DISTRESS, PAIN L=4/10, VS T=97.9 RR=18 SAT=95% P=113 KT=688/67, WENT ON BED TO CIRCULATION ASSISTANT, TOLERATED WELL, WILL CONTINUE FOLLOW UP.
[2020-04-09] MEDS ORDERED: fentaNYL CITRATE 100 MCG/2 ML VL ONE (10:45)
[2020-04-09] MEDS ORDERED: MIDAZOLAM HCL 1MG/1ML-2 ML VIAL ONE (10:45)
[2020-04-09] MEDS ORDERED: LIDOCAINE 2%HCL (LOCAL ANESTH.) INJ 20ML MDV ONE (10:46)
[2020-04-09] MEDS ORDERED: IODIXANOL 320MG/ML 100ML BTL IV ONE (10:46)
--- NOTE | 2020-04-09 12:15 | NUR ---
CAME BACK FROM OIL SEPARATOR, ALERT AND ORIENTED X4, RT. NECK SIDE INCISION SITE COVERED WITH DRY AND INTACT DRESSING, NO REDNESS EDEMA OR DISCOMFORT NOTED, VS T=98.1 RR=16 SAT=96% P=103 IA=260/71, DENIED PAIN, RESTING ON BED, WILL CONTINUE MONITORING.
[2020-04-09] MEDS ORDERED: ONDANSETRON HCL 4 MG/2 ML VIAL IV PRN (13:15)
--- NOTE | 2020-04-09 14:03 | NUR ---
Nutrition Followup Note Wt 74.6 kg Pt was off the floor when rounded this am. per records pt s/p port cath 04/05. pt is currerntly NPO for procedure. pt with inadequate PO Est energy needs BW74 k-1850 kcal (23-25 kcal/kg BW), Est protein needs 74-88 g (1.0-1.2 g/kg BW). Will monitor and reassess prn Labs: CA 8.1 L BM: Pt had 1 BM today per RN note Skin: BS 20 high risk, cellulitis full details in career technology teacher note PES: Altered nutrition related lab values r.t current medical condition aeb mod hypoalb Increased nutrient needs r/t chronic medical condition aeb pt`s with cancer poOR po Comments: Will continue to monitor NPO/status PO intake, skin status. F/u high 2-3 days Rec: 1) consider Megace if appetite is poor. 2) consider alternate nutrition support to meet > 75% of needs. 3) resume diet diet as medically feasible. 4) continue current plan of care
--- NOTE | 2020-04-09 15:30 | NUR ---
THORACENTESIS PATIENT UNDERWENT AN U.S. GUIDED THORACENTESIS IN DEPT. WITH LOCAL ANESTHETIC. 650 ML DK RED/QUENTIN LIQUID OBTAINED. PATIENT BP DOWN TO 47/23 - PATIENT C/O SOB. O2 APPLIED AT 2L PER NC AND IVF STARTED VIA #20 RW AT 100ML/HR.TEGADERM DRSG APPLIED OVER XEROFORM GAUZE TO LEFT MID BACK. PATIENT BP IN CREASED TO 93/68 AFTER INTERVENTIONS. SEE VITALS FLOW SHEET FOR VS. DR CAPPS NOTIFIED . STAT PCXR ORDERED AND DONE IN RADIOLOGY DEPT. REPORT GIVEN TO BRAIN DELGADO. PATIENT RETURNED TO ROOM PER BED IN STABLE CONDITION WITH IVF AT 50ML/HR VIA IV PUMP. PLEURAL FLUID TAKEN TO LAB FOR ORDERED TESTING.
--- NOTE | 2020-04-09 16:10 | NUR ---
WENT ON FOR THORACENTESIS AND CAME BACK, 650 CC OUT PUT REPORTED, ALERT AND ORIENTED X4, TR . MID ABDOMINAL ACCESS COVERED WITH DRY AND INTACT DRESSING, VS T=98.3 RR=16 JSB=322% P=108 LC=776/66, REST ON BED, NOT IN DISTRESS, WILL CONTINUE MONITORING.
--- NOTE | 2020-04-09 17:26 | NUR ---
assessment Patient is a 44 year old female who is sleeping. Pam translated for us. Per patients Hong [phone] prior to admission patient lived home with him and family and functioned with assistance of family. Jamil Pitts patient has no DME at home. Jamil Cedilloo patient was diagnosed with stomach cancer with mets 2 months ago. Hong has been given Arabella from [facility] non profit for caregiving assistance. Pam informed Hong that we would continue to monitor and follow up as appropriate for any post discharge needs. Hong verbalized understanding. Addendum: 04/09/20 at 1731 by Maggi JACQUES Amended: Links added.
--- NOTE | 2020-04-09 19:20 | NUR ---
OPENING SHIFT NOTE Assumed care of patient who is alert and oriented currently on RA with no S/S of distress or SOB noted at this time. Patient denies any pain at this time. Dressing to the right upper chest from the IVC filter placement today is CDI, dressing to the left upper back from thoracentesis today is CDI, steri-strips to the left upper chest for Portacath insertion is CDI, dressing to the right upper abdomen pleurx cath is CDI. Patient is running NS @50. POC discussed with patient, all questions answered, verbalized understanding. Patient is ambulatory without assistance, call light within reach, encouraged to call for assistance as needed. Bed is locked, in lowest position, side rails up x2. Will continue to monitor PRN/Q1hr.
[2020-04-09] MEDS: DexAMETHasone 4 MG TAB PO SCH (22:12)
[2020-04-10 05:00] VITALS: BP 108/69
[2020-04-10] MEDS: SODIUM CHLORIDE 0.9% 1,000 ML IV SCH (05:48)
[2020-04-10] MEDS: SIMETHICONE 40 MG/0.6 ML ORAL DROP PO SCH ×4 (05:48→22:08)
[2020-04-10] MEDS: SUCRALFATE 1 GM/10 ML ORAL SUSP PO SCH ×4 (06:33→22:07)
[2020-04-10] MEDS: DOCUSATE SOD 100 MG CAP PO PRN (06:34)
[2020-04-10 07:08] LABS: Hematocrit 25.3 % (36.0-46.0); Hemoglobin 7.9 g/dL (12.2-16.2)
--- NOTE | 2020-04-10 07:15 | NUR ---
Opening Shift Note Assumed care of patient, AOx4. No S/S of distress/SOB or pain. Instructed on POC and to call for assist PRN. Safety measures in place, including bed locked and in lowest position, side rails x2, call light within reach. Will continue to monitor for changes Q1hr and PRN.
--- NOTE | 2020-04-10 07:15 | NUR ---
CARE ENDORSED TO DAY SHIFT RN
[2020-04-10 08:00] VITALS: BP 110/71
[2020-04-10] MEDS: Ensure Enlive Strawberry 8oz Bottle PO SCH ×2 (08:00→18:12)
[2020-04-10] MEDS: cefTRIAXone 1GM/50ML D5W 50 ML IV SCH (08:23)
[2020-04-10] MEDS: FERROUS SULFATE 300 MG/5 ML ORAL LIQ PO SCH ×3 (08:23→18:00)
[2020-04-10] MEDS: HYDROmorphone HCL 2 MG/ML VL IV PRN ×2 (08:41→20:54)
--- NOTE | 2020-04-10 09:30 | NUR ---
PLEURX REQUIRED DOCUMENTS PLACED ON PATIENT CHART TO BE FAXXED AT DISCHARGE SO PATIENT CAN RECEIVED PLEURX SUPPLIES AT HOME - CARD PUNCHING MACHINE OPERATOR INFORMED PATIENT'S RN AT BEDSIDE.
[2020-04-10] MEDS: MORPHINE SULF 30 mg ER tab PO SCH ×2 (10:16→22:08)
[2020-04-10] MEDS: FLUCONAZOLE 100 MG TAB PO SCH (10:16)
[2020-04-10] MEDS: PANTOPRAZOLE 40 MG TAB PO SCH ×2 (10:16→22:07)
[2020-04-10] MEDS: DexAMETHasone 4 MG TAB PO SCH ×2 (10:16→20:54)
[2020-04-10] MEDS ORDERED: DIPHENOXYLATE W/ATROPINE 2.5 MG TAB PO PRN (11:00)
--- NOTE | 2020-04-10 11:00 | NUR ---
Doctor at bedside Dr. Saleh at bedside, updated on POC.
--- NOTE | 2020-04-10 11:42 | NUR ---
Patient refused med Patient refused Mylicon drops, states she does not feel gassy at this time.
[2020-04-10] MEDS ORDERED: ONDANSETRON HCL 4 MG/2 ML VIAL IV PRN (11:45)
[2020-04-10] MEDS ORDERED: LOPERAMIDE HCL 2 MG CAP PO PRN ×2 (11:45)
--- NOTE | 2020-04-10 11:50 | NUR ---
RECEIVED ORDER PER DR LORA FOR NURSES TO DRAIN PLEURX TUBE PATIENT C/O PAIN/ABD DISTENTION - ACADEMIC SUPPORT SPECIALIST PLACED ORDER AND NOTIFIED FLORENTINO'S RN ISAIAH.
[2020-04-10 12:00] VITALS: BP 107/71
--- NOTE | 2020-04-10 14:15 | NUR ---
PATIENT MOVED TO ROOM 286A. ALL BELONGINGS TAKEN WITH PATIENT. BED LOCKED IN LOWEST POSITION, SIDE RAILS X2, CALL LIGHT WITHIN REACH.
--- NOTE | 2020-04-10 14:20 | NUR ---
Maryam Cath Insertion 20 gauge Maryam Cath inserted using sterile technique in the left upper chest with occlusive dressing over Herbert needle. Patient tolerated procedure well. See e-MAR for medications given during this visit.
[2020-04-10] MEDS ORDERED: ONDANSETRON HCL 4 MG/2 ML VIAL IV ONE (14:30)
--- NOTE | 2020-04-10 14:30 | NUR ---
CALLED PHARMACY ABOUT CHEMO MEDICATION SCHEDULED 1500. SPOKE WITH PHARMACIST, WAS TOLD THAT THEY WOULD GET BACK TO ME WHEN THE MEDICATION IS READY. WILL WAIT TO HEAR BACK FROM THEM.
[2020-04-10] MEDS ORDERED: IRINOTECAN HYDROCHLORIDE IV ONE ×2 (15:00→17:00)
[2020-04-10] MEDS ORDERED: D5W 5% IV ONE ×5 (15:00→19:25)
[2020-04-10] MEDS ORDERED: DOCETAXEL IV ONE ×3 (15:00→19:25)
--- NOTE | 2020-04-10 15:04 | NUR ---
VACCINES VACCINE ORDERED FOR PATIENT NON-ADMITTED. PATIENT TO START CHEMO TODAY 04/10, VACCINES HELD TO DECREASE CHANCE OF ADVERSE DRUG INTERACTIONS WHILE ON CHEMO MEDICATIONS.
--- NOTE | 2020-04-10 15:40 | NUR ---
SPOKE WITH PHARMACY REGARDING CHEMO MEDICATION. THEY STATED THAT THEY ARE MIXING IT AND WILL SEND IT UP. OK TO GIVE ZOFRAN NOW.
--- NOTE | 2020-04-10 16:40 | NUR ---
RECEIVED CHEMO MEDICATIONS FROM PHARMACY, WILL START FIRST MEDICATION. SECOND MEDICATION PLACED IN MED ROOM.
[2020-04-10 16:58] VITALS: BP 119/75
--- NOTE | 2020-04-10 17:00 | NUR ---
MEDICATION HELD PATIENT REFUSED 1700 CARAFATE.
--- NOTE | 2020-04-10 17:06 | NUR ---
CHEMO CHEMO MEDICATIONS STARTED. PATIENT INSTRUCTED TO NOTIFY NURSE OF ANY NEW SYMPTOMS INCLUDING SOB OR CHILLS. VITALS, BP 111/71, HR 93, TEMP 98.2, O2 95% ROOM AIR, RR 16. WILL STAY AT BEDSIDE AND MONITOR.
--- NOTE | 2020-04-10 17:33 | NUR ---
CHEMO PATIENT DENIES ANY NEW SYMPTOMS, MEDICATION IS INFUSING. VITALS BP 106/68, RR 18, TEMP 98.1, 02 96% ROOM AIR, HR 88. WILL CONTINUE TO MONITOR.
--- NOTE | 2020-04-10 18:00 | NUR ---
MEDICATIONS HELD PATIENT REFUSED 1800 MYLICON DROPS AND FERROUS SULFATE. STATES THAT IT "UPSETS MY STOMACH, AND I DON'T WANT IT RIGHT NOW".
--- NOTE | 2020-04-10 18:39 | NUR ---
CHEMO CHEMO COMPLETED. VITALS, BP 109/71, HR 86, TEMP 98.4, 02 97% ROOM AIR, RR 16. PATIENT DENIES PAIN, NAUSEA, SOB. CHEMO MEDIATION/ SUPPLIES DISPOSED OF PER HOSPITAL POLICY/ PROTOCOL. PATIENT INSTRUCTED ON RISK OF DIARRHEA AND INSTRUCTED TO INFORM NURSE OF BOWEL MOVEMENTS.
--- NOTE | 2020-04-10 18:56 | NUR ---
PATIENT CARE ENDORSED TO NIGHT NURSE.
--- NOTE | 2020-04-10 21:00 | NUR ---
Chemo medication started after V/S check. Monitored closely. Instructed to report for any adverse reactions, patient verbalized understanding. Addendum: 04/11/20 at 0501 by Liz Ram RN RN V/S: T - 98.1, HR 92, RR 18, O2 Sat 97%, BP 109/74
[2020-04-10 22:00] VITALS: BP 109/74
--- NOTE | 2020-04-10 22:10 | NUR ---
Chemo infusion done, no adverse reaction noted. Instructed patient to still report for any signs and symptoms. Will continue to monitor Addendum: 04/11/20 at 0502 by Liz Ram RN RN V/S: T - 98.0, HR 85, RR 18, O2 Sat 99%, BP 111/78
[2020-04-11] MEDS: SODIUM CHLORIDE 0.9% 1,000 ML IV SCH ×2 (02:15→22:45)
[2020-04-11 05:00] VITALS: BP 103/69
[2020-04-11] MEDS: SIMETHICONE 40 MG/0.6 ML ORAL DROP PO SCH ×4 (06:18→21:55)
[2020-04-11] MEDS: SUCRALFATE 1 GM/10 ML ORAL SUSP PO SCH ×4 (06:18→21:54)
[2020-04-11 07:18] LABS: Hemoglobin 7.7 g/dL (12.2-16.2)
[2020-04-11 07:20] LABS: Hematocrit 24.7 % (36.0-46.0); Mean Corpuscular Hemoglobin 22.8 pg (28.0-32.0); Mean Corpuscular Hgb Conc. 31.1 g/dL (32.0-36.0); Mean Corpuscular Volume 73.2 fL (80.0-100.0); Platelet Count (auto) 304 10^3/uL (140-450); Red Blood Cells 3.37 10^6/uL (4.0-5.20); White Blood Cell 6.6 10^3/uL (4.4-10.8)
[2020-04-11 07:22] LABS: Basophils % (manual) 0 (0.0-2.0); Blast Cells 0; Eosinophils % (manual) 0 (0-7); Promyelocytes % 0; Reactive Lymphocytes 0
[2020-04-11 07:26] LABS: Potassium 4.3 mmol/L (3.5-5.1)
[2020-04-11 07:34] LABS: Albumin 1.4 g/dL (3.4-5.0); Bilirubin, Total 0.3 mg/dL (0.2-1.0); Calcium 7.7 mg/dL (8.5-10.1)
[2020-04-11 08:52] VITALS: BP 103/69
[2020-04-11] MEDS: Ensure Enlive Strawberry 8oz Bottle PO SCH ×2 (09:45→19:00)
[2020-04-11] MEDS: FLUCONAZOLE 100 MG TAB PO SCH (09:45)
[2020-04-11] MEDS: cefTRIAXone 1GM/50ML D5W 50 ML IV SCH (09:45)
[2020-04-11] MEDS: MORPHINE SULF 30 mg ER tab PO SCH ×2 (09:46→21:55)
[2020-04-11] MEDS: PANTOPRAZOLE 40 MG TAB PO SCH ×2 (09:46→21:55)
--- NOTE | 2020-04-11 09:46 | NUR ---
MD GUIDO MORALES.
[2020-04-11] MEDS: FERROUS SULFATE 300 MG/5 ML ORAL LIQ PO SCH ×3 (10:35→18:00)
[2020-04-11 11:56] LABS: Band Neutrophils % (manual) 2; Lymphocytes % (manual) 4 (10.0-50.0); Metamyelocytes % 3; Monocytes % (manual) 1 (0-12); Myelocytes % 2
--- NOTE | 2020-04-11 12:50 | NUR ---
1200 04/11/20 - Faxed to [facility] at [phone] face sheet, order for pleurx cather kit, H/P. Pending review and delivery of supplies to patient's home.
[2020-04-11 13:00] VITALS: BP 100/73
--- NOTE | 2020-04-11 13:33 | NUR ---
Nutrition Followup Note Wt 76.6 kg Pt was walking when rounded this am. Pt is with a Full liquid diet, with adequate PO intake of 75% x2 per RN doc. Est energy needs BW74 k-1850 kcal (23-25 kcal/kg BW), Est protein needs 74-88 g (1.0-1.2 g/kg BW). Will monitor and reassess prn Labs: CA 7.7 L, Gluc 154 H, Alb 1.4 L BM: Pt with no BM today per RN note Skin: BS 20 low risk, cellulitis full details in pet care assistant note PES: Altered nutrition related lab values r.t current medical condition aeb mod hypoalb Increased nutrient needs r/t chronic medical condition aeb pt`s with cancer poOR po Comments: Will continue to monitor NPO/status PO intake, skin status. F/u high 2-3 days Rec: 1) consider Megace if appetite is poor. 2) consider alternate nutrition support to meet > 75% of needs. 3) resume diet diet as medically feasible. 4) continue current plan of care
--- NOTE | 2020-04-11 13:38 | NUR ---
NEXT CHEMO VISIT APPOINTMENT SET UP FOR 12-[address] DEJESUS'S OFFICE PER HOME SALES SERVICE PROFESSIONAL ERMA.
--- NOTE | 2020-04-11 13:39 | NUR ---
SUPPLIES FOR PLEURX ORDERED PER ISABELL, PENDING CALL FROM JAUN JACQUES FOR [facility] AND SET UP CONFIRMATION.
--- NOTE | 2020-04-11 14:56 | NUR ---
1450 04/11/20 - Contacted [facility] at [phone], spoke with specialist Vinicius who stated due to the holiday the request for pleurx kit will not be processed until 04/16. I informed him that I would f/u on Thursday.
[2020-04-11] MEDS: HYDROmorphone HCL 2 MG/ML VL IV PRN (16:25)
--- NOTE | 2020-04-11 16:45 | NUR ---
PLEURX DRAIN: 650CC YELLOW FLUID REMOVED FROM PLEURX. BLOOD PRESSURE STABLE AND CONSISTENT THROUGHOUT PROCEDURE. JIG OPERATOR AT BEDSIDE ASSISTING IN STERILE SETUP PROCEDURE. PATIENT REPORTED SEVERE CRAMPING AND SHARP PAIN, PAIN MEDICATION GIVEN DURING PROCEDURE. WILL CONTINUE TO MONITOR.
[2020-04-11 17:00] VITALS: BP 102/68
--- NOTE | 2020-04-11 17:25 | NUR ---
MD LORA IN UNIT, INFORMED OF [facility] NOT IN PLACE, PATIENT WILL STAY UNTIL SET UP.
--- NOTE | 2020-04-11 19:01 | NUR ---
CARE ENDORSED TO NOC RN.
--- NOTE | 2020-04-11 19:15 | NUR ---
assumed care, pt. awake, no c/o pain, no sob.
[2020-04-11] MEDS: DexAMETHasone 4 MG TAB PO SCH (21:04)
[2020-04-11 22:00] VITALS: BP 103/65
--- NOTE | 2020-04-12 00:20 | NUR ---
verify with pt. re: dnr paper signed by Dr. Milan, pt. said she talk with the Dr. and agreed.
[2020-04-12 05:00] VITALS: BP 113/74
[2020-04-12] MEDS: SIMETHICONE 40 MG/0.6 ML ORAL DROP PO SCH ×4 (05:55→21:02)
[2020-04-12] MEDS: SUCRALFATE 1 GM/10 ML ORAL SUSP PO SCH ×4 (06:10→21:01)
[2020-04-12] MEDS: Ensure Enlive Strawberry 8oz Bottle PO SCH ×2 (08:00→17:48)
[2020-04-12 09:00] VITALS: BP 104/69
[2020-04-12] MEDS: FERROUS SULFATE 300 MG/5 ML ORAL LIQ PO SCH ×3 (10:00→17:48)
[2020-04-12] MEDS: cefTRIAXone 1GM/50ML D5W 50 ML IV SCH (10:01)
[2020-04-12] MEDS: MORPHINE SULF 30 mg ER tab PO SCH ×2 (10:01→21:08)
[2020-04-12] MEDS: PANTOPRAZOLE 40 MG TAB PO SCH ×2 (10:01→21:01)
[2020-04-12] MEDS: FLUCONAZOLE 100 MG TAB PO SCH (10:01)
[2020-04-12] MEDS: HYDROmorphone HCL 2 MG/ML VL IV PRN (12:38)
[2020-04-12 13:00] VITALS: BP 109/74
[2020-04-12 16:52] VITALS: BP 106/71
[2020-04-12 18:26] LABS: Hematocrit 26.5 % (36.0-46.0); Hemoglobin 8.2 g/dL (12.2-16.2)
[2020-04-12] MEDS: SODIUM CHLORIDE 0.9% 1,000 ML IV SCH (18:30)
--- NOTE | 2020-04-12 19:30 | NUR ---
Opening Shift Note Assumed care of patient, awake and alert. No S/S of distress/SOB or pain. Fall and safety precautions in place. Call light within reach and able to use. Instructed on POC and to call for assist PRN, patient verbalized understanding and in agreement. Will continue to monitor for changes Q1hr and PRN.
[2020-04-12] MEDS: DexAMETHasone 4 MG TAB PO SCH (21:01)
[2020-04-12] MEDS: DOCUSATE SOD 100 MG CAP PO PRN (21:22)
[2020-04-12 21:44] VITALS: BP 101/68
[2020-04-13 05:00] VITALS: BP 105/66
[2020-04-13] MEDS: DOCUSATE SOD 100 MG CAP PO PRN (05:58)
[2020-04-13] MEDS: SIMETHICONE 40 MG/0.6 ML ORAL DROP PO SCH ×4 (05:58→21:31)
[2020-04-13] MEDS: SUCRALFATE 1 GM/10 ML ORAL SUSP PO SCH ×4 (06:06→21:31)
[2020-04-13] MEDS: SODIUM CHLORIDE 0.9% 1,000 ML IV SCH (06:06)
[2020-04-13] MEDS: Ensure Enlive Strawberry 8oz Bottle PO SCH ×2 (08:00→17:45)
[2020-04-13 08:01] LABS: White Blood Cell 5.1 10^3/uL (4.4-10.8)
[2020-04-13 08:02] LABS: Hematocrit 27.3 % (36.0-46.0); Hemoglobin 8.6 g/dL (12.2-16.2); Mean Corpuscular Hgb Conc. 31.5 g/dL (32.0-36.0); Mean Corpuscular Volume 73.2 fL (80.0-100.0); Platelet Count (auto) 293 10^3/uL (140-450); Red Blood Cells 3.72 10^6/uL (4.0-5.20); Red Cell Distribution Width 27.9 % (11.8-14.3)
[2020-04-13 08:05] LABS: Basophils % (manual) 0 (0.0-2.0); Blast Cells 0; Eosinophils % (manual) 0 (0-7); Metamyelocytes % 0; Myelocytes % 0; Promyelocytes % 0; Reactive Lymphocytes 0
[2020-04-13 08:10] LABS: BUN/Creatinine Ratio 36.2; Calcium 7.9 mg/dL (8.5-10.1); Potassium 4.4 mmol/L (3.5-5.1)
--- NOTE | 2020-04-13 08:55 | NUR ---
ASSUMED CARE ASSUMED CARE OF PATIENT, REPORT RECEIVED FROM SANDY CORRAL.
[2020-04-13 09:00] VITALS: BP 103/70
[2020-04-13 09:14] LABS: Band Neutrophils % (manual) 1; Lymphocytes % (manual) 2 (10.0-50.0); Monocytes % (manual) 2 (0-12)
[2020-04-13] MEDS: FERROUS SULFATE 300 MG/5 ML ORAL LIQ PO SCH ×3 (09:21→17:45)
[2020-04-13] MEDS: PANTOPRAZOLE 40 MG TAB PO SCH ×2 (09:22→21:31)
[2020-04-13] MEDS: FLUCONAZOLE 100 MG TAB PO SCH (09:22)
[2020-04-13] MEDS: cefTRIAXone 1GM/50ML D5W 50 ML IV SCH (09:22)
[2020-04-13] MEDS: MORPHINE SULF 30 mg ER tab PO SCH ×2 (09:23→21:31)
[2020-04-13 13:00] VITALS: BP 106/74
[2020-04-13 17:21] VITALS: BP 105/69
--- NOTE | 2020-04-13 19:40 | NUR ---
Opening Shift Note Assumed care of patient, AOX4. No S/S of distress/SOB or pain. Fall and safety precautions in place. Call light within reach and able to use. Instructed on POC and to call for assist PRN, patient verbalized understanding and in agreement. Will continue to monitor for changes Q1hr and PRN.
[2020-04-13] MEDS: DexAMETHasone 4 MG TAB PO SCH (21:31)
[2020-04-13 22:00] VITALS: BP 95/62
[2020-04-13] MEDS: HYDROmorphone HCL 2 MG/ML VL IV PRN (23:39)
[2020-04-14] MEDS: SODIUM CHLORIDE 0.9% 1,000 ML IV SCH (02:55)
[2020-04-14 05:39] VITALS: BP 94/60
[2020-04-14] MEDS: SUCRALFATE 1 GM/10 ML ORAL SUSP PO SCH ×4 (06:22→21:08)
[2020-04-14] MEDS: SIMETHICONE 40 MG/0.6 ML ORAL DROP PO SCH ×4 (06:22→21:08)
--- NOTE | 2020-04-14 07:45 | NUR ---
Opening Shift Note Assumed care of patient, awake, alert, and oriented. No S/S of distress/SOB or pain. Bed in lowest/locked position, bed rails up x2, call light within reach. Instructed on POC and to call for assist PRN. Will continue to monitor for changes Q1hr and PRN.
[2020-04-14] MEDS: FERROUS SULFATE 300 MG/5 ML ORAL LIQ PO SCH ×3 (08:06→17:36)
[2020-04-14] MEDS: Ensure Enlive Strawberry 8oz Bottle PO SCH ×2 (08:06→17:36)
[2020-04-14] MEDS: cefTRIAXone 1GM/50ML D5W 50 ML IV SCH (08:06)
[2020-04-14 09:00] VITALS: BP 100/67
[2020-04-14] MEDS: PANTOPRAZOLE 40 MG TAB PO SCH ×2 (09:35→21:08)
[2020-04-14] MEDS: FLUCONAZOLE 100 MG TAB PO SCH (09:35)
[2020-04-14] MEDS: MORPHINE SULF 30 mg ER tab PO SCH ×2 (09:35→21:08)
--- NOTE | 2020-04-14 09:58 | NUR ---
LAB STOOL SAMPLE COLLECTED SENT TO LAB PER MD ORDERS.
--- NOTE | 2020-04-14 10:45 | NUR ---
MD ROUNDS DR MEDRANO AT BEDSIDE. NEW ORDERS RECEIVED/ WILL CARRY OUT. WILL CONTINUE TO MONITOR
[2020-04-14 13:00] VITALS: BP 101/69
--- NOTE | 2020-04-14 13:58 | NUR ---
Nutrition Followup Note Wt 78.5 kg Pt was alert and oriented at time of rounds. Pt reports appetite is okay on liquid diet. Pt reports was const with last BM today. Pt is on a full liquid diet with poor po intake aeb pt with 25-50% po intake x 2 days per Rn note. Pt is also with Ensure Enlive BID. Est energy needs BW74 k-1850 kcal (23-25 kcal/kg BW), Est protein needs 74-88 g (1.0-1.2 g/kg BW). Will monitor and reassess prn Labs: Creat 0.47L, GLUC 129H, Ca 7.9L, Alb 1.4L BM: Pt last BM today per pt Skin: BS 21 low risk, cellulitis full details in janitor caretaker note PES: Altered nutrition related lab values r.t current medical condition aeb mod hypoalb Increased nutrient needs r/t chronic medical condition aeb pt`s with cancer poOR po Comments: Will continue to monitor NPO/status PO intake, skin status. F/u mod 3-5 days Rec: 1) consider Megace if appetite is poor. 2) consider alternate nutrition support to meet > 75% of needs. 3) resume diet diet as medically feasible. 4) continue current plan of care
[2020-04-14 17:00] VITALS: BP 91/66
[2020-04-14] MEDS: DexAMETHasone 4 MG TAB PO SCH (21:08)
[2020-04-14 22:00] VITALS: BP 96/61
[2020-04-15] MEDS: SODIUM CHLORIDE 0.9% 1,000 ML IV SCH (00:09)
[2020-04-15 05:00] VITALS: BP 98/65
[2020-04-15 05:53] LABS: Basophils # (auto) 0 10 ^3/uL (0-0.2); Basophils % (auto) 0.3 % (0.0-2.0); Eosinophils # (auto) 0 10 ^3/uL (0-0.8); Eosinophils % (auto) 0.1 % (0.0-7.0); Hematocrit 25.9 % (36.0-46.0); Hemoglobin 7.9 g/dL (12.2-16.2); Lymphocytes # (auto) 0.2 10 ^3/uL (0.4-5.4); Lymphocytes % (auto) 4.1 % (10.0-50.0); Mean Corpuscular Hemoglobin 22.4 pg (28.0-32.0); Mean Corpuscular Hgb Conc. 30.6 g/dL (32.0-36.0); Mean Corpuscular Volume 73.3 fL (80.0-100.0); Monocytes # (auto) 0 10 ^3/uL (0-1.3); Monocytes % (auto) 0.9 % (0.0-12.0); Neutrophils # (auto) 4.7 10 ^3/uL (1.6-8.6); Neutrophils % (auto) 94.6 % (37.0-80.0); Platelet Count (auto) 162 10^3/uL (140-450); Red Blood Cells 3.54 10^6/uL (4.0-5.20); White Blood Cell 4.9 10^3/uL (4.4-10.8)
[2020-04-15 05:56] LABS: Red Cell Distribution Width 28.2 % (11.8-14.3)
[2020-04-15] MEDS: SIMETHICONE 40 MG/0.6 ML ORAL DROP PO SCH ×4 (06:03→21:02)
[2020-04-15] MEDS: SUCRALFATE 1 GM/10 ML ORAL SUSP PO SCH ×4 (06:03→21:01)
[2020-04-15 06:16] LABS: BUN/Creatinine Ratio 32.7; Calcium 7.5 mg/dL (8.5-10.1); INR 1.14 (0.9-1.15); Potassium 4.4 mmol/L (3.5-5.1)
--- NOTE | 2020-04-15 08:00 | NUR ---
Opening Shift Note Assumed care of patient, awake, alert, and oriented. No S/S of distress/SOB or pain. Bed in lowest/locked position, bed rails upx2, call light within reach. Instructed on POC and to call for assist PRN. Will continue to monitor for changes Q1hr and PRN.
[2020-04-15 08:34] VITALS: BP 103/95
[2020-04-15] MEDS: FLUCONAZOLE 100 MG TAB PO SCH (09:06)
[2020-04-15] MEDS: cefTRIAXone 1GM/50ML D5W 50 ML IV SCH (09:06)
[2020-04-15] MEDS: FERROUS SULFATE 300 MG/5 ML ORAL LIQ PO SCH ×3 (09:06→17:37)
[2020-04-15] MEDS: PANTOPRAZOLE 40 MG TAB PO SCH ×2 (09:07→21:01)
[2020-04-15] MEDS: MORPHINE SULF 30 mg ER tab PO SCH ×2 (09:07→21:01)
[2020-04-15] MEDS: Ensure Enlive Strawberry 8oz Bottle PO SCH ×2 (09:09→17:37)
[2020-04-15 13:02] VITALS: BP 96/67
[2020-04-15 16:29] VITALS: BP 102/66
[2020-04-15] MEDS: DexAMETHasone 4 MG TAB PO SCH (21:01)
[2020-04-15 22:14] VITALS: BP 102/69
[2020-04-16] MEDS: SODIUM CHLORIDE 0.9% 1,000 ML IV SCH ×2 (01:07→23:37)
[2020-04-16] MEDS: SIMETHICONE 40 MG/0.6 ML ORAL DROP PO SCH ×4 (05:18→22:05)
[2020-04-16 05:22] VITALS: BP 108/73
[2020-04-16] MEDS: SUCRALFATE 1 GM/10 ML ORAL SUSP PO SCH ×4 (06:28→22:04)
[2020-04-16 07:31] LABS: Basophils # (auto) 0 10 ^3/uL (0-0.2); Basophils % (auto) 0.2 % (0.0-2.0); Eosinophils # (auto) 0 10 ^3/uL (0-0.8); Lymphocytes # (auto) 0.2 10 ^3/uL (0.4-5.4); Neutrophils # (auto) 3.4 10 ^3/uL (1.6-8.6)
[2020-04-16 07:35] LABS: Eosinophils % (auto) 0.4 % (0.0-7.0); Hematocrit 24.4 % (36.0-46.0); Hemoglobin 7.5 g/dL (12.2-16.2); Mean Corpuscular Hemoglobin 22.4 pg (28.0-32.0); Mean Corpuscular Hgb Conc. 30.8 g/dL (32.0-36.0); Mean Corpuscular Volume 72.8 fL (80.0-100.0); Monocytes # (auto) 0 10 ^3/uL (0-1.3); Monocytes % (auto) 1.1 % (0.0-12.0); Neutrophils % (auto) 93.3 % (37.0-80.0); Platelet Count (auto) 181 10^3/uL (140-450); Red Blood Cells 3.35 10^6/uL (4.0-5.20); White Blood Cell 3.7 10^3/uL (4.4-10.8)
[2020-04-16 07:36] LABS: Red Cell Distribution Width 27.4 % (11.8-14.3)
[2020-04-16 07:50] LABS: Calcium 7.5 mg/dL (8.5-10.1); Potassium 4.3 mmol/L (3.5-5.1)
[2020-04-16 07:54] LABS: BUN/Creatinine Ratio 39.5
--- NOTE | 2020-04-16 08:20 | NUR ---
MD ROUNDS DR DEJESUS ROUNDING ON PATIENT. PER DR DEJESUS: HE WOULD LIKE PATIENT TO RECEIVE CHEMOTHERAPY TOMORROW. INFORMED THERMAL CUTTING TRACER MACHINE OPERATOR OF MD ORDERS.
[2020-04-16 09:00] VITALS: BP 97/64
[2020-04-16] MEDS: PANTOPRAZOLE 40 MG TAB PO SCH ×2 (09:14→22:05)
[2020-04-16] MEDS: cefTRIAXone 1GM/50ML D5W 50 ML IV SCH (09:14)
[2020-04-16] MEDS: FERROUS SULFATE 300 MG/5 ML ORAL LIQ PO SCH ×3 (09:14→17:34)
[2020-04-16] MEDS: MORPHINE SULF 30 mg ER tab PO SCH ×2 (09:14→22:05)
[2020-04-16] MEDS: FLUCONAZOLE 100 MG TAB PO SCH (09:14)
[2020-04-16] MEDS: Ensure Enlive Strawberry 8oz Bottle PO SCH ×2 (09:15→17:34)
--- NOTE | 2020-04-16 11:20 | NUR ---
MD ROUNDS DR MEDRANO AT BEDSIDE. NEW ORDERS RECEIVED/ WILL CARRY OUT. WILL CONTINUE TO MONITOR
[2020-04-16 13:00] VITALS: BP 96/65
--- NOTE | 2020-04-16 13:00 | NUR ---
PAIN PATIENT C/O PAIN TO ABDOMEN /10, CRAMPY. PATIENT STATING "SHE NEEDS HER FLUID DRAINED." INFORMED DR MEDRANO, PER DR MEDRANO: PATIENT CAN BE DRAINED PRN. WILL CONTINUE TO MONITOR
[2020-04-16] MEDS: HYDROmorphone HCL 2 MG/ML VL IV PRN (13:07)
--- NOTE | 2020-04-16 14:02 | NUR ---
PLEURX DRAIN: 1250ml YELLOW FLUID REMOVED FROM PLEURX. BLOOD PRESSURE PRIOR TO PROCEDURE 115/77, HR 106. BLOOD PRESSURE POST DRAINAGE 110/64, HR 98. PATIENT STATED "SHE FEELS BETTER" WILL CONTINUE TO MONITOR.
[2020-04-16 17:00] VITALS: BP 102/68
--- NOTE | 2020-04-16 19:30 | NUR ---
Opening Shift Note Assumed care of patient, awake and alert. No S/S of distress/SOB or pain. Instructed on POC and to call for assist PRN, will continue to monitor for changes Q1hr and PRN.
[2020-04-17 05:00] VITALS: BP 99/60
[2020-04-17] MEDS: SIMETHICONE 40 MG/0.6 ML ORAL DROP PO SCH ×3 (06:28→17:55)
[2020-04-17] MEDS: SUCRALFATE 1 GM/10 ML ORAL SUSP PO SCH ×3 (06:29→17:54)
[2020-04-17 08:30] VITALS: BP 98/58
--- NOTE | 2020-04-17 08:30 | NUR ---
ROUNDS DR DEJESUS ROUNDING ON PATIENT. MADE AWARE OF SCHEDULED CHEMO INFUSION 1700. NO NEW ORDERS. WILL CONTINUE TO MONITOR
--- NOTE | 2020-04-17 09:30 | NUR ---
CASE MANAGEMENT SPOKE WITH ALLISON PHILLIPS, RE: PATIENT PLEURX SUPPLIES DELIVERED TO HOME THRU [facility]. PER ISABELL: SHE WILL LOOK INOT IT AND CALL BACK
[2020-04-17] MEDS: FERROUS SULFATE 300 MG/5 ML ORAL LIQ PO SCH ×3 (09:37→17:55)
[2020-04-17] MEDS: PANTOPRAZOLE 40 MG TAB PO SCH (09:38)
[2020-04-17] MEDS: Ensure Enlive Strawberry 8oz Bottle PO SCH ×2 (09:38→17:55)
[2020-04-17] MEDS: cefTRIAXone 1GM/50ML D5W 50 ML IV SCH (09:38)
[2020-04-17] MEDS: MORPHINE SULF 30 mg ER tab PO SCH (09:39)
[2020-04-17] MEDS: FLUCONAZOLE 100 MG TAB PO SCH (09:39)
[2020-04-17] MEDS ORDERED: DexAMETHasone 4 MG TAB PO SCH (10:00)
--- NOTE | 2020-04-17 10:40 | NUR ---
MD ROUNDS DR MEDRANO AT BEDSIDE. NEW ORDERS RECEIVED/WILL CARRY OUT. WILL CONTINUE TO MONITOR
[2020-04-17 11:27] LABS: Basophils # (auto) 0 10 ^3/uL (0-0.2); Eosinophils # (auto) 0 10 ^3/uL (0-0.8); Monocytes # (auto) 0.1 10 ^3/uL (0-1.3); Red Blood Cells 3.67 10^6/uL (4.0-5.20)
[2020-04-17 11:29] LABS: Basophils % (auto) 0.4 % (0.0-2.0); Eosinophils % (auto) 1.6 % (0.0-7.0); Hematocrit 26.8 % (36.0-46.0); Hemoglobin 8.3 g/dL (12.2-16.2); Lymphocytes # (auto) 0.5 10 ^3/uL (0.4-5.4); Lymphocytes % (auto) 19.1 % (10.0-50.0); Mean Corpuscular Hemoglobin 22.7 pg (28.0-32.0); Mean Corpuscular Hgb Conc. 31.1 g/dL (32.0-36.0); Monocytes % (auto) 5.8 % (0.0-12.0); Neutrophils # (auto) 1.9 10 ^3/uL (1.6-8.6); Neutrophils % (auto) 73.1 % (37.0-80.0); Nucleated Red Blood Cells % 0.9 %; Platelet Count (auto) 198 10^3/uL (140-450); White Blood Cell 2.6 10^3/uL (4.4-10.8)
[2020-04-17 11:47] LABS: Albumin 1.5 g/dL (3.4-5.0); Calcium 7.3 mg/dL (8.5-10.1); Potassium 3.8 mmol/L (3.5-5.1)
[2020-04-17 11:48] LABS: Red Cell Distribution Width 27.7 % (11.8-14.3)
[2020-04-17 11:55] LABS: BUN/Creatinine Ratio 28.8; Bilirubin, Total 0.2 mg/dL (0.2-1.0); Total Protein 4.4 g/dL (6.4-8.2)
[2020-04-17] MEDS ORDERED: ONDANSETRON HCL 4 MG/2 ML VIAL IV PRN (12:00)
--- NOTE | 2020-04-17 12:05 | NUR ---
CASE MANAGEMENT SPOKE WITH ALLISON PHILLIPS, RE: PATIENT PLEURX SUPPLIES DELIVERED TO HOME THRU [facility]. PER ISABELL: [facility] DOES NOT ACCEPT PATIENT'S INSURANCE, AND SHE WILL CALL ME BACK WHEN SHE GETS AHOLD OF INSURANCE COMPANY. WILL CONTINUE TO MONITOR
--- NOTE | 2020-04-17 12:39 | NUR ---
Nutrition Followup Note Wt 79.9 kg Pt was sleeping at time of rounds. pt done with one round on chemo. Pt is on a full liquid diet with poor po intake aeb pt with 25-50% po intake x 2 days per Rn note. Pt is also with Ensure Enlive BID. Est energy needs BW74 k-1850 kcal (23-25 kcal/kg BW), Est protein needs 74-88 g (1.0-1.2 g/kg BW). Will monitor and reassess prn Labs: GLU 133 H CA 7.5 L ALB 1.4 L BM: Pt had 1 BM 04/14 constipated per pt Skin: BS 21 low risk, cellulitis full details in adult daycare coordinator note PES: Altered nutrition related lab values r.t current medical condition aeb mod hypoalb Increased nutrient needs r/t chronic medical condition aeb pt`s with cancer poOR po Comments: Will continue to monitor PO intake, skin status. F/u mod 3-5 days Rec: 1) consider Megace if appetite is poor. 2) consider alternate nutrition support to meet > 75% of needs. 3) advance diet as medically feasible. 4) continue current plan of care
[2020-04-17] MEDS ORDERED: ONDANSETRON HCL 4 MG/2 ML VIAL IV ONE (13:00)
--- NOTE | 2020-04-17 13:13 | NUR ---
1300 04/17/20 - Contacted [facility] at [phone] to f/u on delivery of pleurx kit supplies, spoke with mobile marketing specialist who stated patient's insurance ([employer]) is not have contract with [facility]. Contacted Emmett caser up [place] who provided me with contracted vendor [employer]. I faxed order for Pleurx catheter kit to [facility] at [phone], I contact [facility] at [phone] to f/u on ETA of delivery of supplies to patient's home. Dispatcher will call me back with an ETA. Informed nurse Alexia of above information.
[2020-04-17 13:20] VITALS: BP 91/58
[2020-04-17] MEDS ORDERED: LOPERAMIDE HCL 2 MG CAP PO PRN ×2 (14:00)
--- NOTE | 2020-04-17 14:42 | NUR ---
CHEMO MEDS CALLED PHARMACY ABOUT CHEMO MEDICATION SCHEDULED 1700. WANTING TO ADMINISTER EARLIER. SPOKE WITH PHARMACIST, WAS TOLD THAT THEY WOULD GET BACK TO ME WHEN THE MEDICATION IS READY. WILL WAIT TO HEAR BACK FROM THEM.
--- NOTE | 2020-04-17 15:05 | NUR ---
VIRGIL PRE-CHEMO SPOKE WITH PHARMACY REGARDING CHEMO MEDICATION. THEY STATED THAT THEY ARE MIXING IT AND WILL SEND IT UP. OK TO GIVE ZOFRAN NOW.
--- NOTE | 2020-04-17 15:40 | NUR ---
1530 04/17/20 - Contacted [facility] at [phone] regarding pending delivery of Pleurx catheter drainage kit. Spoke with Martin who confirmed patient's address and phone number. I provided Martin with authorization [id number]. Martin requested that patient be given 2 bottles to take home. He stated patient's supplies will be delivered tomorrow to home. I informed nurse Alexia of above information.
[2020-04-17] MEDS ORDERED: DOCETAXEL IV ONE ×2 (15:45→17:00)
[2020-04-17] MEDS ORDERED: D5W 5% IV ONE ×3 (15:45→17:00)
--- NOTE | 2020-04-17 15:50 | NUR ---
PLEUR-X SPOKE WITH RECONDITIONING ASSOCIATE RE: SENDING PATIENT HOME WITH SUPPLIES FOR PLEUR-X D/T MEDICAL SUPPLIES VENDOR NOT DELIVERING SUPPLIES UNTIL TOMORROW AM. PER RECONDITIONING ASSOCIATE: OK TO SEND HOME 2 SETS OF PLEUR-X CONTAINERS. WILL CONTINUE TO MONITOR
--- NOTE | 2020-04-17 16:04 | NUR ---
CHEMO CHEMO MEDICATIONS STARTED. PATIENT INSTRUCTED TO NOTIFY NURSE OF ANY NEW SYMPTOMS INCLUDING SOB OR CHILLS. VITALS, BP 97/58, HR 83, TEMP 97.8, O2 97% ROOM AIR, RR 16. WILL STAY AT BEDSIDE AND MONITOR.
[2020-04-17 16:40] VITALS: BP 99/59
[2020-04-17] MEDS ORDERED: IRINOTECAN HYDROCHLORIDE IV ONE (17:00)
--- NOTE | 2020-04-17 17:05 | NUR ---
CHEMO CHEMO MEDICATIONS INFUSED. PATIENT INSTRUCTED TO NOTIFY NURSE OF ANY NEW SYMPTOMS INCLUDING SOB OR CHILLS. VITALS, BP 98/60, HR 80, TEMP 98.8, O2 97% ROOM AIR, RR 16. PATIENT TOLERATED WELL
--- NOTE | 2020-04-17 17:10 | NUR ---
CHEMO CHEMO MEDICATIONS STARTED. PATIENT INSTRUCTED TO NOTIFY NURSE OF ANY NEW SYMPTOMS INCLUDING SOB OR CHILLS. VITALS, BP 98/60, HR 80, TEMP 98.8, O2 97% ROOM AIR, RR 16. WILL STAY AT BEDSIDE TPO MONITOR
[2020-04-17 17:30] VITALS: BP 98/60
--- NOTE | 2020-04-17 17:55 | NUR ---
ROUND DELIVERED DINNER TRAY. PATIENT STILL INFUSING CHEMO MEDICATION. PATIENT TOLERATING WELL. WILL CONTINUE TO MONITOR
--- NOTE | 2020-04-17 18:57 | NUR ---
ENDORSE CARE ENDORSED TO FLAT DRIER, INSTRUCTIONS TO D/C PATIENT HOME PER MD ORDERS. PATIENT FINISHED BOTH CHEMO ROUNDS. PATIENT HAS PLEUR-X SUPPLIES AT BEDSIDE TO TAKE HOME.
--- NOTE | 2020-04-17 18:57 | NUR ---
CHEMO CHEMO MEDICATIONS INFUSED. VITALS, BP 105/66, HR 85, TEMP 98.7, O2 96% ROOM AIR, RR 16. PATIENT TOLERATED WELL
--- NOTE | 2020-04-17 19:30 | NUR ---
Opening Shift Note Report received from day RN that patient has discharge orders. Assumed care of patient, awake and alert. No S/S of distress/SOB or pain. Instructed on POC and to call for assist PRN, will continue to monitor for changes Q1hr and PRN. Patient will be prepared for discharge.
--- NOTE | 2020-04-17 20:30 | NUR ---
Discharge papers printed. Heparin flush for port-a-cath ordered per protocol to de-access. Waiting for heparin flush to be sent by pharmacy. Care continued.
[2020-04-17 21:00] VITALS: BP 97/52
--- NOTE | 2020-04-17 21:05 | NUR ---
Discharge instructions given as ordered. Encourage to follow up with PMD as instructed. All questions and concerns addressed. Patient verbalized understanding. Medication reconciliation form completed and copy given to patient. Home medications held in Pharmacy returned to patient, and no vaccines needed at this time. Prescriptions given to patient. Patient provided with 2 sets of pleurX bags, the rest of the supplies will be delivered to the patient. IV removed with catheter intact, pressure dressing applied, patient voiding freely. Port-a-cath discontinued per protocol. Patient tolerated it well. Telemetry unit returned to ICU. Patient taken to vehicle via wheelchair with all personal belongings, accompanied by staff and family member. No distress noted at time of departure.
== END 2020-04-17 21:00 | disposition home or self-care (01) | DRG 374 ==
LOC: ER 09:24 → TELE 09:25 → TELE-WESTW 21:09
PROVIDERS: ADMIT Hospitalist; ATTEND Internal Medicine
PROC: 0W9G30Z Drainage of Peritoneal Cavity with Drainage Device, Percutaneous Approach (ICD-10-PCS; principal; 2020-04-03)
PROC: 02HV33Z Insertion of Infusion Device into Superior Vena Cava, Percutaneous Approach (ICD-10-PCS; 2020-04-05)
PROC: 0JH63WZ Insertion of Totally Implantable Vascular Access Device into Chest Subcutaneous Tissue and Fascia, Percutaneous Approach (ICD-10-PCS; 2020-04-05)
PROC: 0W9G30Z Drainage of Peritoneal Cavity with Drainage Device, Percutaneous Approach (ICD-10-PCS; 2020-04-06)
PROC: B5191ZA Fluoroscopy of Inferior Vena Cava using Low Osmolar Contrast, Guidance (ICD-10-PCS; 2020-04-09)
PROC: 06H03DZ Insertion of Intraluminal Device into Inferior Vena Cava, Percutaneous Approach (ICD-10-PCS; 2020-04-09)
PROC: 0W9B30Z Drainage of Left Pleural Cavity with Drainage Device, Percutaneous Approach (ICD-10-PCS; 2020-04-09)
PROC: 3E0 Administration, Physiological Systems and Anatomical Regions, Introduction (ICD-10-PCS; 2020-04-09)
DX: C16.9 Malignant neoplasm of stomach, unspecified (principal); E43 Unspecified severe protein-calorie malnutrition; I26.99 Other pulmonary embolism without acute cor pulmonale; K65.9 Peritonitis, unspecified; C25.9 Malignant neoplasm of pancreas, unspecified; B37.49 Other urogenital candidiasis; C78.6 Secondary malignant neoplasm of retroperitoneum and peritoneum; E87.1 Hypo-osmolality and hyponatremia; J90 Pleural effusion, not elsewhere classified; D62 Acute posthemorrhagic anemia; R18.0 Malignant ascites; I82.431 Acute embolism and thrombosis of right popliteal vein; D50.9 Iron deficiency anemia, unspecified; D63.0 Anemia in neoplastic disease; Z20.828 Contact with and (suspected) exposure to other viral communicable diseases; E78.5 Hyperlipidemia, unspecified; G89.3 Neoplasm related pain (acute) (chronic); I10 Essential (primary) hypertension; K21.9 Gastro-esophageal reflux disease without esophagitis; K25.9 Gastric ulcer, unspecified as acute or chronic, without hemorrhage or perforation; K29.70 Gastritis, unspecified, without bleeding; K52.9 Noninfective gastroenteritis and colitis, unspecified; M19.90 Unspecified osteoarthritis, unspecified site; Z92.21 Personal history of antineoplastic chemotherapy; Z95.828 Presence of other vascular implants and grafts; Z96.652 Presence of left artificial knee joint
CPT/HCPCS: 10022; 36415; 71045; 71275; 74018; 74176; 76000; 76604; 76700; 76942; 80048; 80053; 80061; 80307; 81001; 82270; 83036; 83540; 83550; 83690; 83735; 83986; 84132; 84484; 84702; 85007; 85014; 85018; 85025; 85027; 85379; 85610; 85730; 86850; 86900; 86901; 87040; 87086; 87088; 87205; 87426; 89051; 93005; 93306; 93970; 96361; 96365; 96375; 96376; 97163; 99152; G0378; J0690; J0696; J1450; J1642; J2001; J2250; J2405; J3490; J7060; Q9967